=== PATIENT | female | born 1980 | race Caucasian/White ===

== ENCOUNTER 2019-04-17 20:48 | Emergency (ER) | payer BC, SELFPAY ==
[2019-04-17 20:48] VITALS: BP 163/89; PULSE 147; RESP 18; TEMP 36.8; O2SAT 96; BMI 46.1
--- NOTE | 2019-04-17 21:07 | CT_ITS ---
HISTORY: ,NAUSEA AND VOMITING ALL DAY,PREG TEST WAS NEGATIVE EXAMINATION: CT Abdomen And Pelvis W/ Contrast Injection TECHNIQUE: Helically acquired images were obtained of the abdomen and pelvis following IV contrast. A radiation dose optimization technique was used for this scan. IV Contrast dosage and agent: 100mL [id number]-300 IV Oral contrast: yes . Oral Gastrografin COMPARISON: None FINDINGS: Lower thorax: Clear. No pleural effusion or pericardial effusion. Normal gallbladder distention. No radiopaque gallstones and no biliary dilatation. Mildly enlarged fatty liver. Normal spleen and pancreas. Both kidneys are normal in position. Bilateral renal opacification without evidence of hydronephrosis, pyelonephritis, or suspicious renal lesion. Tiny cortical cyst, upper pole of the left kidney. The adrenal glands are not enlarged. Normal abdominal aorta and IVC. No ascites or retroperitoneal lymph node enlargement. GI tract: No obstruction. Contrast filling of a small appendix or appendiceal stump. No pericecal or pericolonic inflammatory changes. Pelvis: No free fluid or lymph node enlargement. Anteverted uterus which is normal in size. Normal urinary bladder. Bones: No acute osseous abnormality. CT/Abdomen/Pelvis WITH Contrast IMPRESSION: 1. Nonobstructive bowel gas pattern. No acute abdominal disease identified. 2. Mildly enlarged fatty liver. Otherwise negative exam. Individualized dose optimization techniques were used for this CT. at 2342 Reported and signed by: Hever Barrera MD Electronically Signed: Hever Barrera, at 23:40 EST Tel , Service support ,
[2019-04-17] MEDS: 0.9% Normal Saline 1,000 ML 1000 ML IV (21:16)
[2019-04-17] MEDS: Ondansetron 4 MG/2 ML Vial IV (21:16)
[2019-04-17 21:25] LABS: Absolute Lymphocyte Count 0.42 X10^3/uL (0.83-4.51); Absolute Neutrophil Count 10.1 X10^3/uL (2.0-7.7); Basophil# 0.01 X10^3/uL; Basophil% 0.1 % (0-1); Eosinophil# 0.03 X10^3/uL; Eosinophils% 0.3 % (0-5); Hematocrit 41.3 % (37-47); Hemoglobin 13.7 g/dL (12.0-15.0); Lymphocyte # 0.42 X10^3/ul (4.0); Lymphocyte % 3.8 % (19-41); Mean Corp Hgb Conc 33.2 g/dL (32-36); Mean Corpuscular Hgb 30.5 pg (27.0-32.0); Mean Platelet Vol. 8.9 fl (6.2-12.0); Monocyte# 0.33 X10^3/uL; NRBC Flagged by Analyzer 0 % (0-5); Neutrophil # 10.07 X10^3/uL (2.7-7.7); Neutrophil % 92.2 % (47-70); POSITIVE DIFFERENTIAL YES; Platelet Count 246 K/mm3 (150-450); RBC Distribution Width CV 11.9 % (11.6-14.6); RBC Distribution Width SD 39.8 fl (35.1-43.9); Red Blood Count 4.49 M/mm3 (4.2-5.4); White Blood Count 10.9 K/mm3 (4.4-11.0)
[2019-04-17 21:35] LABS: Differential Indicated SCAN CRITERIA MET
[2019-04-17 21:36] LABS: ALB/GLOB Ratio 0.9 RATIO (0.9-2.4); AST(SGOT) 28 U/L (15-37); Alanine Aminotransfer ALT/SGPT 30 U/L (13-56); Albumin, Serum 3.6 g/dL (3.2-5.0); Alkaline Phosphatase 115 U/L (45-117); Anion Gap 8 (5-15); BUN 18 mg/dL (7-18); BUN/Creat Ratio 22.8 RATIO (10-20); Calcium,Total 8.6 mg/dL (8.5-10.1); Chloride 106 mmol/L (98-107); Creatinine, Serum 0.79 mg/dL (0.55-1.02); EST Glomerular Filtration Rate 86 mL/min (>60); Est Glom Filt Rate - Afr Amer 104 mL/min (>60); Estimated Creatinine Clearance 88.62 ml/min; Globulin 4.1 g/dL (2.2-4.2); Glucose 145 mg/dL (74-106); Potassium 3.8 mmol/L (3.5-5.1); Protein, Total 7.7 g/dL (6.4-8.2); Sodium Level 136 mmol/L (136-145)
[2019-04-17 21:44] LABS: Internal QC Validated? YES +Cl - CLEAR BKGD; Pregnancy, Serum, hCG Quali. NEGATIVE Negative
[2019-04-17 21:53] LABS: Mucous, Urine 0 SEEN /hpf (<or=2+); Red Blood Cells-Urine 0 SEEN /hpf (0-5); White Blood Cells 0 SEEN /hpf (0-5)
[2019-04-17 22:04] LABS: Color, Urine Yellow (Yellow); Glucose, Dipstick Normal (Normal); Ketone-Dipstick 15 mg/dl (Negative); Leukocyte Esterase-Dipstick Negative /ul (Negative); Nitrite-Dipstick Negative (Negative); Occult Blood-Urine Negative /ul (Negative); Protein-Dipstick Negative (Negative); Specific Gravity, Urine 1.015 (1.002-1.030); Urine Bilirubin Dipstick Negative (Negative); Urine Clarity Sl. Cloudy (Clear); Urine Urobilinogen Normal (Normal)
[2019-04-17 22:07] LABS: Bacteria RARE /hpf (None Seen); Squamous Epithelial Cells - UA 0-5 SEEN /hpf (5-10)
--- NOTE | 2019-04-17 23:00 | ED.VISSUMM ---
- ER Visit Summary Date of Service: 04/17/19 Chief Complaint: [Nausea and vomiting] History of Present Illness: The patient is a 38 F [presents to the emergency department complaint of nausea and vomiting and abdominal pain. Patient states her symptoms started around 9:30 AM. Patient states that she is been throwing up like every hour. She denies any diarrhea. She denies blood in her stool. Patient had a low-grade fever up to 992 at home. Denies any sick contacts. Patient has no medical history. She has no's prior surgical history. Patient states that she had bronchitis a few weeks ago but that seems to have resolved.] Physical Examination: [HEENT-PERRLA, EOMI. Cranial nerves II through XII grossly intact. TMs clear. Mucous membranes moist. No adenopathy. Cardiovascular-regular rate and rhythm without murmur or ectopy Lungs-clear to auscultation, chest wall stable without crepitus or subcu emphysema Abdomen-normoactive bowel sounds, soft. Patient has tenderness to the right lower quadrant with some guarding. There is no rebound, rigidity, or peritoneal signs. Extremities-intact ?4, normal range of motion, normal pulses, atraumatic] Test Results: [CBC with differential obtained was normal. Chemistries unremarkable. Urinalysis normal. hCG was negative. CT scan of the abdomen pelvis ordered and pending] Emergency Department Course and Treatment: [She was treated with Zofran. Patient was given 1 L normal same fluid bolus.] Treatment Plan: [Patient will be turned over to evening physician awaiting CT results.] Disposition: [Pending] Impression: [Abdominal pain] This note was generated with [employer] dictation software. It may contain incorrect words, spelling, and punctuation that were not noted in review of the chart prior to signing <Jean Soliman - Last Filed: 04/17/19 23:00> - ER Visit Summary Patient checked out to me. Her CT returned unremarkable with a normal appendix and no signs of any inflammatory changes on any organs. She is feeling much better still. Tolerating oral fluids. She has had nonbloody repeated emesis without diarrhea. Her labs and urine are unremarkable. Hopefully viral gastritis, which would be consistent with all of this, supportive care advised along with symptom control, she is prescribed Zofran and we discussed reasons to return. She is comfortable with following up and asked for a work note for tomorrow. This note was generated with [employer] dictation software. It may contain incorrect words, spelling, and punctuation that were not noted in review of the chart prior to signing <Michael Kelly - Last Filed: 04/18/19 00:09> ED Disposition <Jean Soliman - Last Filed: 04/17/19 23:00> <Michael Kelly - Last Filed: 04/18/19 00:09> - Plan for ED Patient: Disposition: Home or Assisted Living Diagnosis: Acute gastritis without bleeding Instructions: DIET, Vomiting or Diarrhea [6yr-Adult], GASTRITIS (Adult) Prescriptions: Ondansetron [Zofran] 8 mg PO Q8H PRN PRN #12 tab PRN Reason: Nausea Transmission Status: Pending to [id number] Referrals: Ananda Vergara MD [Primary Care Provider] - 3-5 Days if not improving
[2019-04-17 23:18] VITALS: BP 153/84; PULSE 79; RESP 16; O2SAT 99
[2019-04-18 00:16] VITALS: BP 153/84; PULSE 79; RESP 16; O2SAT 99
== END 2019-04-18 00:17 | disposition home or self-care (01) ==
PROVIDERS: Emergency Provider Emergency Medicine; Family Provider Family Medicine; PCP Family Medicine
DX: K29.00 Acute gastritis without bleeding (principal)
CPT/HCPCS: 74177; 80053; 81001; 84703; 85025; 96361; 96374; 99283; J7030; Q9967; A4216; J2405

== ENCOUNTER 2019-06-23 12:54 | Emergency (ER) | payer BC, MEDICAID, SELFPAY ==
[2019-06-23 12:55] VITALS: BP 159/109; PULSE 111; RESP 20; TEMP 36.4; O2SAT 96; BMI 47.3
--- NOTE | 2019-06-23 13:11 | ED.VIS.GEN ---
History of Present Illness Chief Complaint: Cold Sx Detail of Chief Complaint: Cough, chest congestion and pleuritic chest pain Informant: Patient Onset: Yesterday Context: Sudden Onset Timing: Continuous Quality: Pain with coughing and deep breathing Location: Right and left chest Maximum Severity: Moderate Worsened by: Breathing Relieved by: Remaining still Associated Symptoms: Minimal nasal congestion with cough Narrative: Patient is a 38-year-old woman with no sniffing past medical history presents with cough, subjective fever, pleuritic pain and mild nasal congestion that started yesterday. She denies ill contacts. She states her T-max is 100.6 ?F. She complains of mild head pain. She denies photophobia, neck pain or neck stiffness. She denies throat pain. Denies change in voice. She denies history of PE or DVT. She denies leg pain, swelling discoloration. She denies GI or symptoms. Prior similar symptoms: Yes - Diagnosed with influenza last year Recent Illness/Hospitalization: No - Past Medical History (1) No significant past medical history Status: Acute Past Medical History - Allergies and Home Meds Allergies/Adverse Reactions: Allergies oseltamivir [From Tamiflu] Adverse Reaction (Verified 06/23/19 12:56) Vomiting Primary Care Physician: Ananda Vergara MD [Primary Care Provider] - Prior records reviewed: Yes Past Medical History: None Surgical History: noncontributory Lives: With Family Smoking Status: Never smoker Alcohol: None Drugs: None Review of Systems General: Reports: Fever, Malaise. Denies: Subjective, Sweats Eyes: Denies: Visual changes - bilaterally, Blurred Vision - bilaterally ENT: Denies: Bilateral ear pain, Rhinorrhea, Sore throat Cardiovascular: Reports: Chest pain. Denies: Palpitations Respiratory: Reports: Cough. Denies: Dyspnea, Sputum, Dyspnea on exertion, Orthopnea, Paroxysmal nocturnal dyspnea Gastrointestinal: Denies: Abdominal pain, Nausea, Vomiting, Diarrhea, Melena, Hematochezia Genitourinary: Denies: Dysuria, Hematuria, Frequency Musculoskeletal: Reports: Myalgias. Denies: Arthralgias, Neck pain, Back pain, Swelling, Extremity Pain Skin: Denies: Rash, Wounds Neurological: Denies: Headache, Weakness, Numbness Endocrine: Denies: Polyuria, Polydipsia Hematologic: Denies: Easy bruising, Easy bleeding Physical Exam Vital Signs/Narrative: Vital Signs Temp Pulse Resp BP Pulse Ox 06/23/19 12:55 97.5 F L 111 H 20 H 159/109 H 96 Inital Vital Signs reviewed: Yes General: Well nourished, Well developed, No Acute Distress Head: Normocephalic, Atraumatic Eyes: Perrl, EOMI. Negative for: Pale conjunctiva, Scleral icterus ENT: Moist mucous membranes, No rhinorrhea, TM's clear Neck: Supple, Nontender, No lymphadenopathy, No JVD Cardiovascular: Regular rhythm, No murmurs, Normal S1, Normal S2, Tachycardia Respiratory: No distress, CTA bilaterally, Decreased Air Movement Abdomen: Soft, Nontender, Nondistended, Normal bowel sounds Extremities: Nontender, No edema Skin: Normal color, No rash Neurological: Alert, Oriented x3, Cranial nerves II-XII grossly intact, Normal Strength, Normal Sensation, Normal Gait Psychological: Normal affect Diagnostic/Tx/Re-eval Chest X-Ray - ED: 2 View, Read by ED Physician, Normal, Heart, Lungs, Mediastinum, Bony Structures, No Acute Disease - Medical Decision Making With complaint of cough, tachypnea tachycardia with documented fever obtain chest x-ray to evaluate for pneumonia. Chest x-ray is normal. Patient has bronchitis. ED Disposition - Plan for ED Patient: Disposition: Home or Assisted Living Diagnosis: Upper respiratory infection with cough and congestion Instructions: BRONCHITIS, No Antibiotic (Adult) Referrals: Ananda Vergara MD [Primary Care Provider] - 10-14 Days if not better
--- NOTE | 2019-06-23 13:16 | RAD_ITS ---
STUDY: X-RAY CHEST REASON FOR EXAM: Female, 38 years old. COLD SYMPTOMS AND CHEST CONGESTION FOR A FEW DAYS TECHNIQUE: PA and lateral views of the chest. COMPARISON: 04/16/2012 FINDINGS: The lungs are clear and expanded. There is no demonstrated pleural abnormality. Normal size heart. Normal mediastinum and amy. Normal visualized pulmonary arteries. Normal visualized aortic arch and descending thoracic aorta. Normal visualized thoracic spine. Normal visualized ribs, clavicles, and shoulders. There is no demonstrated abnormality of the visualized soft tissue structures of the upper abdomen. RAD/Chest PA and Lateral IMPRESSION: Normal x-ray examination of the chest. Electronically Signed: Tomás De Leon MD at 13:51 EST Tel , Service support ,
== END 2019-06-23 14:14 | disposition home or self-care (01) ==
PROVIDERS: Emergency Provider Emergency Medicine; PCP Family Medicine
DX: J06.9 Acute upper respiratory infection, unspecified (principal)
CPT/HCPCS: 71046; 99282

== ENCOUNTER 2024-07-17 14:37 | Inpatient (IN) | payer BC, SELFPAY ==
[2024-07-17] VITALS (15 sets, daily range): BP systolic 169–190; BP diastolic 83–100; PULSE 92–120; RESP 16–18; TEMP 36.6–37.3; O2SAT 97–100; BMI 47.9; BMI 47.7
--- NOTE | 2024-07-17 14:43 | EKG12_ITS ---
Test Reason : Blood Pressure : */* mmHG Vent. Rate : 109 BPM Atrial Rate : 109 BPM P-R Int : 146 ms QRS Dur : 78 ms QT Int : 354 ms P-R-T Axes : 60 46 59 degrees QTcB Int : 476 ms Sinus tachycardia Otherwise normal ECG Confirmed by TAYLER WOOD, PARISH ([id number]), avid editor WAYNE JIMENEZ ([id number]) on 07/19/2024 8:16:11 AM Referred By: Peter Price Confirmed By: PARISH LESTER MD
--- NOTE | 2024-07-17 15:35 | EX.ED.DYSGE1 ---
HPI History of Present Illness Chief Complaint: Syncope Narrative Narrative: 43-year-old female presents with near syncope that happened prior to arrival. She relates history that she was taking Bactrim for an abscess, which was giving her side effects. She recently switched to Keflex which she has been taking, and has taken before. She states she woke up this morning and felt fine and went about her day. However, when she was at work, she had a near syncopal episode. While she was standing, she felt as if she was going to go down, but caught herself. She denies that she had any loss of consciousness or a true syncopal episode. No chest pain or shortness of breath. She has had intermittent headaches over the last few days, but states that it is secondary to her sinuses. She currently does not have a headache. She feels improved but came in for evaluation of her near syncopal episode. [facility] Medical History (Updated 07/17/24 @ 17:00 by Peter Price MD) Depression Home Medications ?Medication ?Instructions ?Recorded ?Last Taken ?Type ondansetron HCl 8 mg tablet 8 mg PO Q8H PRN PRN Nausea #12 tabs 04/18/19 Unknown Rx Allergy/AdvReac Type Severity Reaction Status Date / Time oseltamivir (From Tamiflu) AdvReac Vomiting Verified 07/17/24 14:38 Social History (Updated 07/17/24 @ 15:53 by Vivian Kaiser) household members: spouse housing: house Smoking Status: Never smoker ROS ROS ED ROS Narrative Constitutional: No fever, no chills. HEENT: No neck pain. No loss of vision. No rhinorrhea. Positive for sinus problems. Cardiovascular: No chest pain. No palpitations. No pedal edema. Respiratory: No cough, no shortness of breath. Abdominal: No abdominal pain. No nausea. No vomiting. Genitourinary: No dysuria. No hematuria. Musculoskeletal: No myalgias. No arthralgias. Neurologic: Occasional headaches, not currently. Intermittent dizziness. Positive lightheadedness and near syncope. Skin: No rash. No change in color. Being treated for an abscess with antibiotics. Psychiatric: No depression. No anxiety. EXAM Physical Exam Narrative Exam Narrative: Afebrile. Vital signs noted. Nontoxic-appearing. Cardiovascular examination reveals intermittent tachycardia. Lungs clear to auscultation bilaterally. Abdomen is soft and nontender with positive bowel sounds. No guarding or rebound. Neurological examination is nonfocal, nonlateralizing. Awake, alert, oriented, pleasant. Const Vital Signs: 07/17/24 14:39 07/17/24 15:52 07/17/24 15:52 Temperature 97.8 F Temperature Source Oral Pulse Rate 105 H Pulse Rate [Lying] Pulse Rate [Sitting (for 1 minute prior to obtaining)] Pulse Rate [Standing (for 1 minute prior to obtaining)] Respiratory Rate 18 Respiratory Effort Normal Non-Labored Respiratory Pattern Normal Blood Pressure 170/91 H Blood Pressure [Lying] Blood Pressure [Sitting (for 1 minute prior to obtaining)] Blood Pressure [Standing (for 1 minute prior to obtaining)] Blood Pressure Mean 117 Blood Pressure Mean [Lying] Blood Pressure Mean [Sitting (for 1 minute prior to obtaining)] Blood Pressure Mean [Standing (for 1 minute prior to obtaining)] Pulse Ox 100 97 Oxygen Delivery Method Room Air Room Air 07/17/24 16:00 07/17/24 16:38 07/17/24 17:05 Temperature 98 F Temperature Source Pulse Rate 100 100 Pulse Rate [Lying] 113 H Pulse Rate [Sitting (for 1 minute prior to obtaining)] 114 H Pulse Rate [Standing (for 1 minute prior to obtaining)] 120 H Respiratory Rate 18 Respiratory Effort Respiratory Pattern Blood Pressure 179/89 H 179/89 H Blood Pressure [Lying] 176/91 H Blood Pressure [Sitting (for 1 minute prior to obtaining)] 186/98 H Blood Pressure [Standing (for 1 minute prior to obtaining)] 176/94 H Blood Pressure Mean 119 119 Blood Pressure Mean [Lying] 119 Blood Pressure Mean [Sitting (for 1 minute prior to obtaining)] 127 Blood Pressure Mean [Standing (for 1 minute prior to obtaining)] 121 Pulse Ox 100 100 Oxygen Delivery Method MDM MDM MDM Narrative Medical decision making narrative: Differential diagnosis includes but not limited to orthostatic hypotension/near syncope versus vasovagal near syncope versus dehydration versus other electrolyte imbalance versus hypertensive urgency. Initially her blood pressure was 170/91 but while he was in the room it was just over 200 systolic. I do not feel she requires a CT of the brain currently as she has a normal neurological examination and she is symptom-free. Protocol labs were obtained including CBC and CMP. EKG was obtained and interpreted by myself independently as sinus tachycardia at 109 bpm without ectopy or acute ST changes. No STEMI. Her pulse ox is 100% on room air. I have low suspicion for pulmonary embolus. She will be observed on the engine monitor to see if her blood pressure will start to normalize without medication intervention. I was able to review her CBC initially and she has an elevated white count of 16.8 but of most significant is her hemoglobin of 5.4. Hematocrit 17.9 with platelet count normal at 434. Gurvinder interview with the patient, she states that she has not been anemic previously, but felt weak and tired prior to her starting Bactrim last week, and while she was on Bactrim she had black stool. However, yesterday she had a bowel movement that was more brown in color. I reviewed the BMP which shows normal BUN of 15 and creatinine low at 0.61. Normal BUN will go against significant upper GI bleeding, but is still a possibility. I will obtain a fecal occult blood of her stool. At this point in time, orthostatics will be performed. She has never had a blood transfusion previously. Risks and benefits discussed. As she states she was having black stool I do suspect previous GI bleed, she will be typed and crossmatched, I do feel that she merits at least observation with is dependent on her fecal occult blood of stool as well. Orthostatics were obtained and reviewed and are negative. Chaperoned rectal examination did reveal dark chirinos stool. There was no acute hemorrhage. I reviewed the fecal occult blood test which is positive. At this point in time, I feel she requires admission for her GI bleeding, elevated blood pressure, and anemia requiring transfusions. I discussed the patient with Dr. Misti Johnston who will admit to the PCU. Patient is in stable condition. History & Record Review Discussion w/independent historian: Patient Lab Data Attestation: I reviewed the patient's lab results. Labs: Laboratory Results - last 24 hr 07/17/24 07/17/24 15:29 15:59 WBC 16.8 H RBC 2.07 L Hgb 5.4 L* Hct 17.9 L MCV 86.5 MCH 26.1 L MCHC 30.2 L RDW Std Deviation 46.7 H RDW Coeff of Carlitos 14.9 H Plt Count 434 MPV 8.6 Immature Gran % (Auto) 4.600 H Neut % (Auto) 71.5 H Lymph % (Auto) 16.6 L Dodge % (Auto) 4.6 Eos % (Auto) 2.5 Baso % (Auto) 0.2 Absolute Neuts (auto) 12.0 H Absolute Lymphs (auto) 2.78 Nucleated RBC % 0.7 Diff Path Review May foll Platelet Estimate A Polychromasia 1+ Tear Drop Cells 1+ Ovalocytes 1+ Sodium 138 Potassium 3.6 Chloride 105 Carbon Dioxide 20.2 L Anion Gap 13 BUN 15 Creatinine 0.61 L Estim Creat Clear Calc 153.51 Est GFR (MDRD) Non-Af 112 BUN/Creatinine Ratio 24.0 H Glucose 153 H Calcium 8.6 Total Bilirubin 0.15 AST 23 ALT 20 Alkaline Phosphatase 96 Total Protein 7.4 Albumin 3.9 Globulin 3.5 Albumin/Globulin Ratio 1.1 Blood Type O POSITIVE Antibody Screen NEGATIVE Crossmatch See Detail Management Discussion w/another healthcare provider: Hospitalist (Dr. Misti Johnston) Discharge Plan Dx/Rx/DC Orders Clinical Impression: Anemia requiring transfusions, Elevated blood pressure reading without diagnosis of hypertension, GI bleed Disposition Disposition: Acute Care Hospital [facility]
[2024-07-17 15:43] LABS: Absolute Lymphocyte Count 2.78 X10^3/uL (0.83-4.51); Basophil# 0.03 X10^3/uL; Basophil% 0.2 % (0-1); Eosinophil# 0.42 X10^3/uL; Eosinophils% 2.5 % (0-5); Hematocrit 17.9 % (37-47); Hemoglobin 5.4 g/dL (12.0-15.0); Lymphocyte # 2.78 X10^3/ul (0.83-4.51); Lymphocyte % 16.6 % (19-41); Mean Corp Hgb Conc 30.2 g/dL (32-36); Mean Corpuscular Hgb 26.1 pg (27.0-32.0); Mean Corpuscular Volume 86.5 fL (81-99); Mean Platelet Vol. 8.6 fl (6.2-12.0); Monocyte# 0.77 X10^3/uL; Monocyte% 4.6 % (0-10); NRBC Flagged by Analyzer 0.7 % (0-5); Neutrophil # 12.01 X10^3/uL (2.7-7.7); Neutrophil % 71.5 % (47-70); POSITIVE COUNT YES; Platelet Count 434 K/mm3 (150-450); RBC Distribution Width CV 14.9 % (11.6-14.6); RBC Distribution Width SD 46.7 fl (35.1-43.9); Red Blood Count 2.07 M/mm3 (4.2-5.4); White Blood Count 16.8 K/mm3 (4.4-11.0)
[2024-07-17 15:45] LABS: Differential Indicated SCAN CRITERIA MET
[2024-07-17 16:08] LABS: ALB/GLOB Ratio 1.1 RATIO (0.9-2.4); AST(SGOT) 23 U/L (<=31); Alanine Aminotransfer ALT/SGPT 20 U/L (<=34); Albumin, Serum 3.9 g/dL (3.5-5.0); Alkaline Phosphatase 96 U/L (35-104); Anion Gap 13 (5-15); BUN 15 mg/dL (4-19); Calcium,Total 8.6 mg/dL (7.6-11.0); Carbon Dioxide 20.2 mmol/L (21.0-32.0); Chloride 105 mmol/L (98-108); Creatinine, Serum 0.61 mg/dL (0.70-1.20); EST Glomerular Filtration Rate 112 (>60); Estimated Creatinine Clearance 153.51 ml/min (50-250); Globulin 3.5 g/dL (2.2-4.2); Glucose 153 mg/dL (70-99); Potassium 3.6 mmol/L (3.3-5.1); Protein, Total 7.4 g/dL (5.9-8.4); Sodium Level 138 mmol/L (133-145); Total Bilirubin 0.15 mg/dL (0.00-1.30)
[2024-07-17 16:46] LABS: Ovalocyte 1+; Platelet Estimate A (ADEQ); Polychromasia 1+; Tear Drop Cell 1+
[2024-07-17 16:47] LABS: Pathologist Review May foll
--- NOTE | 2024-07-17 18:31 | PCM.HP.STD ---
HPI - General General Date of Admission: 07/17/24 Date of Service: 07/17/24 Chief Complaint: Presyncopal episode HPI Narrative ENRIQUE HARTMAN, is a 43-year-old female with recent antibiotics on Bactrim switched to Keflex presented to [facility] ED 07/13/2024 due to near syncope. This morning she felt fine and went about her day but work she had a near syncopal episode but caught herself. Denies any loss of consciousness. In the ED patient initially hypertensive with 170/91 blood pressure but she was found to have white count of 16.8 and hemoglobin of 5.4 without any noted history of anemia but did begin to have dark stool. Fecal occult positive so hospitalist contacted for admission. Patient evaluated at bedside, she reports that she had a abscess that began to spontaneously drain under her left breast and was initially placed on Bactrim, she developed a dark stool, was very tired and felt unwell and was switched to Keflex on and symptoms improved and she feels that her abscess has also continues significantly improved however today at work she had been feeling well until the middle of her work shift when she was standing there and became very lightheaded and presyncopal, she grabbed onto something and did not completely lose consciousness, symptoms have since resolved but she came to the hospital for evaluation. Reports that her stool had been dark but has been clearing up since she was switched to the Keflex, denies any significant reflux and reports she will occasionally have some heartburn that goes away with [id number] medications, denies any recent changes in this. No abdominal pain or nausea [facility] Medical History (Updated 07/17/24 @ 17:00 by Peter Price MD) Depression Home Medications ?Medication ?Instructions ?Recorded ?Last Taken ?Type albuterol sulfate 90 mcg/actuation 2 puff inhalation Q4H PRN PRN 07/17/24 07/17/24 History aerosol inhaler wheezing cephalexin 500 mg capsule 500 mg PO 4X/DAY 07/17/24 07/17/24 History fluoxetine 20 mg capsule 20 mg PO DAILY 07/17/24 07/16/24 History fluticasone propionate 50 1 spray intranasal Q12H 07/17/24 07/17/24 History mcg/actuation nasal spray,suspension Allergy/AdvReac Type Severity Reaction Status Date / Time oseltamivir (From Tamiflu) AdvReac Vomiting Verified 07/17/24 14:38 Social History (Updated 07/17/24 @ 15:53 by Vivian Kaiser) household members: spouse housing: house Smoking Status: Never smoker ROS ROS Narrative General: Denies fever/chills HENT: Occasionally gets some nasal congestion and headache EYES: Denies changes in vision Resp: Denies cough, denies shortness of breath Cardiac: Denies chest pain GI: Denies abdominal pain, has had some dark bowel movements, reports these have been clearing up, denies nausea/vomiting : Denies changes in urination Extremity: Denies swelling MSK: Denies weakness Neuro: Denies any numbness/tingling Heme: Denies any bleeding or bruising Skin: Has draining area under left breast Psychiatric: No complaints voiced Vital Signs Vital Signs Vital Signs: 07/17/24 14:39 07/17/24 15:52 07/17/24 15:52 Temperature 97.8 F Temperature Source Oral Pulse Rate 105 H Pulse Rate [Lying] Pulse Rate [Sitting (for 1 minute prior to obtaining)] Pulse Rate [Standing (for 1 minute prior to obtaining)] Respiratory Rate 18 Respiratory Effort Normal Non-Labored Respiratory Pattern Normal Blood Pressure 170/91 H Blood Pressure [Lying] Blood Pressure [Sitting (for 1 minute prior to obtaining)] Blood Pressure [Standing (for 1 minute prior to obtaining)] Blood Pressure Mean 117 Blood Pressure Mean [Lying] Blood Pressure Mean [Sitting (for 1 minute prior to obtaining)] Blood Pressure Mean [Standing (for 1 minute prior to obtaining)] Blood Pressure Source Blood Pressure Position Blood Pressure Location Pulse Ox 100 97 Oxygen Delivery Method Room Air Room Air 07/17/24 16:00 07/17/24 16:38 07/17/24 17:05 Temperature 98 F Temperature Source Pulse Rate 100 100 Pulse Rate [Lying] 113 H Pulse Rate [Sitting (for 1 minute prior to obtaining)] 114 H Pulse Rate [Standing (for 1 minute prior to obtaining)] 120 H Respiratory Rate 18 Respiratory Effort Respiratory Pattern Blood Pressure 179/89 H 179/89 H Blood Pressure [Lying] 176/91 H Blood Pressure [Sitting (for 1 minute prior to obtaining)] 186/98 H Blood Pressure [Standing (for 1 minute prior to obtaining)] 176/94 H Blood Pressure Mean 119 119 Blood Pressure Mean [Lying] 119 Blood Pressure Mean [Sitting (for 1 minute prior to obtaining)] 127 Blood Pressure Mean [Standing (for 1 minute prior to obtaining)] 121 Blood Pressure Source Blood Pressure Position Blood Pressure Location Pulse Ox 100 100 Oxygen Delivery Method 07/17/24 17:45 07/17/24 18:00 Temperature 98.2 F 98.3 F Temperature Source Oral Oral Pulse Rate 111 H 96 Pulse Rate [Lying] Pulse Rate [Sitting (for 1 minute prior to obtaining)] Pulse Rate [Standing (for 1 minute prior to obtaining)] Respiratory Rate 16 16 Respiratory Effort Respiratory Pattern Blood Pressure 172/99 H 185/83 H Blood Pressure [Lying] Blood Pressure [Sitting (for 1 minute prior to obtaining)] Blood Pressure [Standing (for 1 minute prior to obtaining)] Blood Pressure Mean 123 117 Blood Pressure Mean [Lying] Blood Pressure Mean [Sitting (for 1 minute prior to obtaining)] Blood Pressure Mean [Standing (for 1 minute prior to obtaining)] Blood Pressure Source Monitor Monitor Blood Pressure Position Semi-Fowlers Semi-Fowlers Blood Pressure Location Left Arm Left Arm Pulse Ox 100 100 Oxygen Delivery Method Room Air Room Air Weight Weight: 126.688 kg Body Mass Index (BMI) 47.9 Physical Exam Narrative General: Alert, oriented, no apparent distress HEENT: Atraumatic, normocephalic Eyes: Anicteric, normal conjunctiva, extraocular movements grossly intact Neck: Supple Respiratory: Clear to auscultation bilaterally, normal respiratory effort Cardiovascular: Regular rate and rhythm GI: Soft, nontender, nondistended Extremities: No edema Musculoskeletal: Moving all extremities Neuro: No overt focal neurological deficits Skin: Patient has draining abscess under left breast with purulent material Psych: Cooperative Results Lab / Micro Data 07/17/24 15:29 07/17/24 15:29 Labs: Laboratory Results - last 24 hr 07/17/24 15:29: WBC 16.8 H, RBC 2.07 L, Hgb 5.4 L*, Hct 17.9 L, MCV 86.5, MCH 26.1 L, MCHC 30.2 L, RDW Std Deviation 46.7 H, RDW Coeff of Carlitos 14.9 H, Plt Count 434, MPV 8.6, Immature Gran % (Auto) 4.600 H, Neut % (Auto) 71.5 H, Lymph % (Auto) 16.6 L, [place] % (Auto) 4.6, Eos % (Auto) 2.5, Baso % (Auto) 0.2, Absolute Neuts (auto) 12.0 H, Absolute Lymphs (auto) 2.78, Nucleated RBC % 0.7, Diff Path Review May foll, Platelet Estimate A, Polychromasia 1+, Tear Drop Cells 1+, Ovalocytes 1+, Sodium 138, Potassium 3.6, Chloride 105, Carbon Dioxide 20.2 L, Anion Gap 13, BUN 15, Creatinine 0.61 L, Estim Creat Clear Calc 153.51, Est GFR (MDRD) Non-Af 112, BUN/Creatinine Ratio 24.0 H, Glucose 153 H, Calcium 8.6, Total Bilirubin 0.15, AST 23, ALT 20, Alkaline Phosphatase 96, Total Protein 7.4, Albumin 3.9, Globulin 3.5, Albumin/Globulin Ratio 1.1 07/17/24 15:59: Blood Type O POSITIVE, Antibody Screen NEGATIVE, Crossmatch See Detail Micro: Microbiology 07/17/24 16:25 Stool Stool Occult Blood (SAQIB) - Final Occult Blood Positive Assessment & Plan Assessment/Plan (1) GI bleed: PLAN: Plan # Anemia with concern for GI bleed -Hemoglobin 5.4 with near syncopal episode however symptoms completely resolved and patient with negative orthostats -Patient did have dark stool but she reports that it has been improving, FOBT was positive but rectal exam with no joana blood -Patient typed and crossed with plans to transfuse 2 units packed blood cells -IV PPI -Trend H&H -GI consult -Patient presently stable # Abscess under her left breast -White blood cell count 16.8, was on Bactrim and switched to Keflex -Does have purulent drainage on exam -Will obtain culture Place patient on vancomycin for coverage # Significant hypertension -Unclear chronicity -Continue to monitor and if patient remains elevated will likely need started on medication prior to discharge but given concern for GI bleed hesitant to do so acutely unless absolutely necessary -Will add hydralazine as needed #Depression/anxiety -Continue home medications #Morbid obesity -BMI documented as 47.7 kg/m? at time of admission -Complicates treatment, prognosis, outcomes -Recommend weight loss and lifestyle changes #DVT ppx: SCDs Misti Johnston MD Charges/Coding Visit Charges Inpatient E&M: 01580 Init Hosp L2
[2024-07-17] MEDS: 0.9% Normal Saline (100mL Bag) 100 ML 15 ML IV (21:43)
[2024-07-17] MEDS: Vancomycin HCl 2,000 MG in 0.9% Normal Saline (500mL Bag) 500 ML 250 MG IV (21:43)
[2024-07-17] MEDS: 0.9% Saline Lock 10 ML Syringe IV (21:44)
[2024-07-17] MEDS: Pantoprazole Sodium 40 MG in 0.9% Normal Saline (100mL MB+) 100 ML 330 MG IV (21:46)
[2024-07-17] MEDS: Fluticasone 0.05% 1 SPRAY NASAL.SRY NASAL (23:12)
[2024-07-18] VITALS (14 sets, daily range): BP systolic 118–195; BP diastolic 66–96; PULSE 91–108; RESP 16–18; TEMP 2.7–37.3; O2SAT 95–99; BMI 47.7
[2024-07-18 01:18] LABS: Hematocrit 20.3 % (37-47); Hemoglobin 6.5 g/dL (12.0-15.0); Mean Corpuscular Hgb 27.2 pg (27.0-32.0); Mean Corpuscular Volume 84.9 fL (81-99); Mean Platelet Vol. 8.3 fl (6.2-12.0); Platelet Count 336 K/mm3 (150-450); RBC Distribution Width CV 14.3 % (11.6-14.6); RBC Distribution Width SD 44.1 fl (35.1-43.9); Red Blood Count 2.39 M/mm3 (4.2-5.4); White Blood Count 17.3 K/mm3 (4.4-11.0)
[2024-07-18 01:25] LABS: Scan Indicated on CBC? Y/N NO
[2024-07-18] MEDS: hydrALAZINE 20 MG/ML Vial 5 MG IV (03:02)
[2024-07-18] MEDS: 0.9% Saline Lock 10 ML Syringe IV ×2 (06:02→21:23)
[2024-07-18 07:32] LABS: Absolute Lymphocyte Count 2.48 X10^3/uL (0.83-4.51); Basophil# 0.04 X10^3/uL; Basophil% 0.3 % (0-1); Eosinophil# 0.43 X10^3/uL; Hematocrit 22.7 % (37-47); Hemoglobin 7.2 g/dL (12.0-15.0); Lymphocyte # 2.48 X10^3/ul (0.83-4.51); Lymphocyte % 17.3 % (19-41); Mean Corp Hgb Conc 31.7 g/dL (32-36); Mean Corpuscular Hgb 26.9 pg (27.0-32.0); Mean Corpuscular Volume 84.7 fL (81-99); Mean Platelet Vol. 8.5 fl (6.2-12.0); Monocyte# 0.82 X10^3/uL; Monocyte% 5.7 % (0-10); Neutrophil # 9.96 X10^3/uL (2.7-7.7); Neutrophil % 69.5 % (47-70); Platelet Count 337 K/mm3 (150-450); RBC Distribution Width CV 14.6 % (11.6-14.6); RBC Distribution Width SD 44.9 fl (35.1-43.9); Red Blood Count 2.68 M/mm3 (4.2-5.4); White Blood Count 14.3 K/mm3 (4.4-11.0)
[2024-07-18 08:05] LABS: International Normalized Ratio 1.2; Partial Thromboplast Time 22.6 Seconds (24.1-36.2); Prothrombin Time (Protime)PT. 15.1 SECONDS (11.7-14.9)
[2024-07-18 08:20] LABS: Anion Gap 9 (5-15); BUN 12 mg/dL (4-19); Calcium,Total 8.1 mg/dL (7.6-11.0); Carbon Dioxide 21.4 mmol/L (21.0-32.0); Chloride 108 mmol/L (98-108); Creatinine, Serum 0.55 mg/dL (0.70-1.20); EST Glomerular Filtration Rate 115 (>60); Glucose 124 mg/dL (70-99); Potassium 3.8 mmol/L (3.3-5.1); Sodium Level 139 mmol/L (133-145)
[2024-07-18] MEDS: Vancomycin HCl 1,750 MG in 0.9% Normal Saline (500mL Bag) 500 ML 250 MG IV ×2 (10:22→22:00)
[2024-07-18] MEDS: Fluticasone 0.05% 1 SPRAY NASAL.SRY NASAL ×2 (10:22→21:21)
[2024-07-18] MEDS: Pantoprazole Sodium 40 MG in 0.9% Normal Saline (100mL MB+) 100 ML 330 MG IV ×2 (10:22→21:22)
[2024-07-18 11:20] LABS: Hematocrit 22.8 % (37-47); Hemoglobin 7.3 g/dL (12.0-15.0); Mean Corpuscular Hgb 27.1 pg (27.0-32.0); Mean Corpuscular Volume 84.8 fL (81-99); Mean Platelet Vol. 8.4 fl (6.2-12.0); Platelet Count 343 K/mm3 (150-450); RBC Distribution Width CV 14.7 % (11.6-14.6); Red Blood Count 2.69 M/mm3 (4.2-5.4); White Blood Count 13.7 K/mm3 (4.4-11.0)
--- NOTE | 2024-07-18 11:30 | CASEMGMT ---
RN MAXIM Face to Face with patient for initial transition planning/care coordination assessment. RN CM introduced self and role at [facility]. Patient lying in bed, alert and oriented. Patient willing to participate in assessment and is able to answer all questions appropriately. Care providers, pharmacy, and demographics verified. Strata: 1 PCP: Jai Specialists: none Preferred Pharmacy: [facility] Insurance: [place] Prescription Benefit: yes Living Will/HPOA: none LNOK: mother Living Arrangements: Patient lives alone in a second floor apartment. Patient is independent and able to ambulate stairs. Transportation: self, friends DME/HHC: Patient has grab bar at home. No previous HHC or SNF Patient wishes to discharge home, denies need for home health at this time. Patient states he has no further needs or concerns at this time. CM to follow for discharge planning needs that may arise. Disposition Plan: Patient to discharge home with family support and follow-up plans in place. Soledad CUENCA, RN, CM
--- NOTE | 2024-07-18 12:51 | PN.HOSP_ITS ---
Subjective Subjective Doing well, feels much better after transfusions. Hemoglobin 7.3 on recheck Objective Data Objective Data Vital Signs: Vital Signs Temp Pulse Resp BP Pulse Ox O2 Del Method 98.1 F 99 16 168/86 H 99 Room Air 07/18/24 10:01 07/18/24 10:01 07/18/24 10:01 07/18/24 10:01 07/18/24 10:01 07/18/24 10:01 Oxygen Delivery Method Room Air Weight: 277 lb 12.519 oz Body Mass Index (BMI) 47.7 Intake & Output: Intake and Output for Last 24 Hours 07/17/24 07/18/24 07/19/24 03:59 03:59 03:59 Intake Total 1164.25 / 1164.25 110 / 110 Balance 1164.25 / 1164.25 110 / 110 Lab / Micro Data 07/18/24 11:07 07/18/24 07:19 Labs: Laboratory Results - last 24 hr 07/17/24 15:29: WBC 16.8 H, RBC 2.07 L, Hgb 5.4 L*, Hct 17.9 L, MCV 86.5, MCH 26.1 L, MCHC 30.2 L, RDW Std Deviation 46.7 H, RDW Coeff of Carlitos 14.9 H, Plt Count 434, MPV 8.6, Immature Gran % (Auto) 4.600 H, Neut % (Auto) 71.5 H, Lymph % (Auto) 16.6 L, [place] % (Auto) 4.6, Eos % (Auto) 2.5, Baso % (Auto) 0.2, A bsolute Neuts (auto) 12.0 H, Absolute Lymphs (auto) 2.78, Nucleated RBC % 0.7, Diff Path Review August, Platelet Estimate A, Polychromasia 1+, Tear Drop Cells 1+, Ovalocytes 1+, Sodium 138, Potassium 3.6, Chloride 105, Carbon Dioxide 20.2 L, Anion Gap 13, BUN 15, Creatinine 0.61 L, Estim Creat Clear Calc 153.51, Est GFR (MDRD) Non-Af 112, BUN/Creatinine Ratio 24.0 H, Glucose 153 H, Calcium 8.6, Total Bilirubin 0.15, AST 23, ALT 20, Alkaline Phosphatase 96, Total Protein 7.4, Albumin 3.9, Globulin 3.5, Albumin/Globulin Ratio 1.1 07/17/24 15:59: Blood Type O POSITIVE, Antibody Screen NEGATIVE, Crossmatch See Detail 07/17/24 15:59: Crossmatch See Detail 07/18/24 01:06: WBC 17.3 H, RBC 2.39 L, Hgb 6.5 L, Hct 20.3 L, MCV 84.9, MCH 27.2, MCHC 32.0 D, RDW Std Deviation 44.1 H, RDW Coeff of Carlitos 14.3, Plt Count 336, MPV 8.3 07/18/24 07:19: WBC 14.3 H, RBC 2.68 L, Hgb 7.2 L, Hct 22.7 L, MCV 84.7, MCH 26.9 L, MCHC 31.7 L, RDW Std Deviation 44.9 H, RDW Coeff of Carl[place] 14.6, Plt Count 337, MPV 8.5, Immature Gran % (Auto) 4.200 H, Neut % (Auto) 69.5, Lymph % (Auto) 17.3 L, [place] % (Auto) 5.7, Eos % (Auto) 3.0, Baso % (Auto) 0.3, Absolute Neuts (auto) 10.0 H, Absolute Lymphs (auto) 2.48, Nucleated RBC % 1.0, PT 15.1 H, INR 1.2, APTT 22.6 L, Sodium 139, Potassium 3.8, Chloride 108, Carbon Dioxide 21.4, Anion Gap 9, BUN 12, Creatinine 0.55 L, Estim Creat Clear Calc 169.70, Est GFR (MDRD) Non-Af 115, BUN/Creatinine Ratio 22.0 H, Glucose 124 H, Calcium 8.1 07/18/24 11:07: WBC 13.7 H, RBC 2.69 L, Hgb 7.3 L, Hct 22.8 L, MCV 84.8, MCH 27.1, MCHC 32.0, RDW Std Deviation 45.0 H, RDW Coeff of [place] 14.7 H, Plt Count 343, MPV 8.4 Micro: Microbiology 07/17/24 16:25 Stool Stool Occult Blood (SAQIB) - Final Occult Blood Positive Physical Exam Narrative General: Alert, Oriented x3, Cooperative, No apparent distress HEENT: Atraumatic, PERRLA, EOMI, Normocephalic Oral: Moist Mucosa Neck: Supple, No JVD Lungs: Diminished, Normal air movement, No rhonchi, No wheeze, No rales Cardiovascular: Regular rate, Regular Rhythm, Normal S1, Normal S2, No murmurs Abdomen: Soft, Non Tender, Non-Distended, No Hepato-splenomegaly Extremities: No edema, Capillary Refill Less than 3 Seconds Skin: No rashes, No breakdown, left breast abscess dressing intact Musculoskeletal: No Tenderness to Palpation of Joints or Extremities Neurological: No focal neurological deficits, Motor Exam 5/5 strength throughout, Sensory exam intact to light touch and pain Psych/Mental Status: Normal Affect, Appropriate Assessment & Plan Assessment/Plan (1) GI bleed: PLAN: Plan 1. Acute blood loss anemia secondary to GI bleed/morbid obesity ? Hemoccult was positive, there was some concern for possible hemolysis secondary to the Bactrim however bilirubin was normal ? EGD is pending ? Continue with n.p.o. status ? Will recheck hemoglobin in the morning ? BMI 47.7 2. Left breast abscess ? Currently drained and can likely improve without further antibiotics on discharge ? Culture is pending 3. Hypertension ? No previous diagnosis and does not take any medications for it unclear if this is stress related or genuine ? If she remains elevated prior to discharge can consider the addition of Norvasc with outpatient follow-up 4. Anxiety/depression ? Stable ? Continue with her home medications DVT: SCDs Charges/Coding Visit Charges Inpatient E&M: 17802 Subs Hosp L2
--- NOTE | 2024-07-18 13:40 | CASEMGMT ---
Patient declined any abuse. Patient also said she periodically will go to [facility] for food. That is one of the only food [place] that does not have an income guideline. Otherwise she does not qualify for any other assistance. Marisol CARVER
--- NOTE | 2024-07-18 14:22 | PCM.PRE.AN2 ---
ASA Classification* ASA Classification ASA Classification: 3 Assessment & Plan Anesthesia* Anesthesia Assessment Anesthesia Assessment: Discussed sedation and/or anesthesia options, risks, benefits, and alternatives with patient/parents/legal guardian/POA. Questions invited. The patient/parents/legal guardian/POA seems to understand and agrees to proceed with anesthesia plan. Reviewed the physical assessment, medical history, allergy history and patient home medications list prior to surgery/procedure/anesthetic and documented any changes. Performed airway and anesthesia risk assessments. Anesthesia Type Anesthesia Type: MAC History Source History Obtained from:: Patient and Chart Anesthesia Focused Assessment* Temperature: 98.1 F Pulse Rate: 99 Blood Pressure: 168/86 Respiratory Rate: 16 Pulse Ox: 99 Oxygen Delivery Method: Room Air Airway Assessment Mouth opens: >3 cm Mallampati Score: II Teeth Condition: Intact Neck Range of motion (ROM): Full ROM Focused Labs Anesthesia Preop lab: CBC WBC 13.7 K/mm3 (4.4-11.0) H 07/18/24 11:07 07/18/24 RBC 2.69 M/mm3 (4.2-5.4) L 07/18/24 11:07 07/18/24 Hgb 7.3 g/dL (12.0-15.0) L 07/18/24 11:07 07/18/24 Hct 22.8 % (37-47) L 07/18/24 11:07 07/18/24 Plt Count 343 K/mm3 (150-450) 07/18/24 11:07 07/18/24 CHEMISTRY Potassium 3.8 mmol/L (3.3-5.1) 07/18/24 07:19 07/18/24 Sodium 139 mmol/L (133-145) 07/18/24 07:19 07/18/24 BUN 12 mg/dL (4-19) 07/18/24 07:19 07/18/24 Creatinine 0.55 mg/dL (0.70-1.20) L 07/18/24 07:19 07/18/24 Glucose 124 mg/dL (70-99) H 07/18/24 07:19 07/18/24 COAG PT 15.1 SECONDS (11.7-14.9) H 07/18/24 07:19 07/18/24 Pre-Assessment Diagnosis/Proposed Procedure Planned Operative Procedure(s): Esophagogastroduodenoscopy with possible biopsies. 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 When Was Last Pacemaker Check QUESTION #4 FULL TEXT: You/Your Family Experience fever (hyperthermia) with Anesthesia Last Oral Intake Last Oral intake: Last Oral Intake NPO since 00:01 07/18/24 10:25 Meds taken in AM with sips of No 07/18/24 10:25 water? Meds patient instructed to take am of surgery PONV PONV - real estate intern: PONV - real estate intern Female HX of Motion Sickness HX of N/V After Surgery Non-Smoker Duration of Surgery greater than 60 minutes Number of Risk Factors PONV Score Height & Weight Height & Weight: Anesthesia: Height & Weight Height 5 ft 4 in 07/18/24 10:25 Weight: 126 kg 07/18/24 10:25 Body Mass Index (BMI) 47.7 07/18/24 10:25 Respiratory Assessment Respiratory Assessment - real estate intern: Respiratory Tract Infection Hx - real estate intern Hx Respiratory Tract Infection No 07/18/24 10:28 STOP Sleep Apnea STOP Sleep Apnea - real estate intern: STOP Sleep Apnea - real estate intern Hx Hypertension No 07/17/24 18:55 Hx Sleep Apnea No 07/17/24 18:55 CPAP BIPAP Do you snore loudly (louder No 07/17/24 18:55 than talking or can be heard Do you often feel tired/ No 07/17/24 18:55 fatigued/ sleepy during daytime? Has anyone observed you stop No 07/17/24 18:55 breathing during sleep? STOP Results Negative 07/17/24 18:55 QUESTION #5 FULL TEXT : Do you snore loudly (louder than talking or can be heard through closed doors)? 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 Specify any problems Hx of Preganancy in last 3 No 07/17/24 18:55 Months Nurse Filling Out Transfusion JNORRIS 07/17/24 18:55 & Questions: Date: 07/17/24 07/17/24 18:55 Time: 19:03 07/17/24 18:55 Patient unable to answer at this time (ie. confused, unrespo /Reproduction History /Reproductive History - real estate intern: /Reproductive Hx- real estate intern Hx Now No 07/18/24 10:28 Gestational Age (in weeks): EDC: Hx Hx Para Hx Section SAB No 07/18/24 10:28 Active Medications Active Medications: Current Medications Generic Name Dose Route Start Last Admin Trade Name Freq PRN Reason Stop Dose Admin Acetaminophen 650 mg 07/17/24 19:52 Acetaminophen 325 Mg Tablet PO Q6H PRN PRN Pain 1-10 Or Fever >100.7 Albuterol Sulfate 2.5 mg 07/17/24 19:52 Albuterol 2.5 Mg/3 Ml Vial.Neb. INHALATION Q2H PRN PRN SOB &/OR WHEEZING Fluoxetine HCl 20 mg 07/18/24 10:00 Fluoxetine 20 Mg Capsule PO DAILY VIJAY Fluticasone Propionate 1 spray 07/17/24 22:00 07/18/24 10:22 Fluticasone 0.05% 1 [place] Nasal.Sry NASAL 1 spray Q12 VIJAY Administration Hydralazine HCl 5 mg 07/17/24 20:01 07/18/24 03:02 Hydralazine 20 Mg/Ml Vial IV 5 mg Q8H PRN PRN Administration prn SBP >185 Protocol Sodium Chloride 100 mls @ 15 mls/hr 07/17/24 19:06 07/18/24 00:00 IV 0 mls/hr .Q6H40M PRN Infusion Saline Flush Sodium Chloride 100 mls @ 15 mls/hr 07/17/24 19:06 IV .Q6H40M PRN Additional IVPB Infusion Vancomycin IV-PHARMACY TO DOSE 500 mls @ 250 mls/hr 07/17/24 19:52 1 each/ Sodium Chloride IV X1 PRN Rx to Dose Protocol Pantoprazole Sodium 40 mg/ 110 mls @ 330 mls/hr 07/17/24 22:00 07/18/24 11:03 Sodium Chloride IV Infused Q12 VIJAY Infusion Vancomycin HCl 1,750 mg/ 535 mls @ 250 mls/hr 07/18/24 10:00 07/18/24 10:22 Sodium Chloride IV 250 mls/hr Q12H VIJAY Administration Melatonin 3 mg 07/17/24 19:52 Melatonin 3 Mg Tablet PO QHS PRN PRN INSOMNIA Ondansetron HCl 4 mg 07/17/24 19:52 Ondansetron 4 Mg/2 Ml Vial IV Q8H PRN PRN NAUSEA/VOMITING Senna/Docusate Sodium 2 tablet 07/17/24 19:52 Senna/Docusate Sodium 1 Tablet PO BID PRN PRN Constipation Sodium Chloride 10 - 40 ml 07/17/24 19:06 07/18/24 06:02 0.9% Saline Lock 10 Ml Syringe IV 10 ml UD PRN Administration SALINE FLUSH Vancomycin Protocol 1 lab 07/19/24 08:30 Vancomycin Trough/Random Due 07/19/24 10:30 DAILY [facility] PFSH Medical History (Updated 07/17/24 @ 17:00 by Peter Price MD) Depression Home Medications ?Medication ?Instructions ?Recorded ?Last Taken ?Type albuterol sulfate 90 mcg/actuation 2 puff inhalation Q4H PRN PRN 07/17/24 07/17/24 History aerosol inhaler wheezing cephalexin 500 mg capsule 500 mg PO 4X/DAY 07/17/24 07/17/24 History fluoxetine 20 mg capsule 20 mg PO DAILY 07/17/24 07/16/24 History fluticasone propionate 50 1 spray intranasal Q12H allergies 07/17/24 07/18/24 History mcg/actuation nasal spray,suspension Allergy/AdvReac Type Severity Reaction Status Date / Time sulfamethoxazole (From AdvReac Intermediate Fatigue, Verified 07/18/24 14:32 Bactrim) loss of appetite trimethoprim (From Bactrim) AdvReac Intermediate Fatigue, Verified 07/18/24 14:32 loss of appetite oseltamivir (From Tamiflu) AdvReac Vomiting Verified 07/17/24 14:38 Social History (Updated 07/17/24 @ 15:53 by Vivian Kaiser) household members: spouse housing: house Smoking Status: Never smoker Review of Systems (Anesthesia) ROS Narrative System reviewed and no additional complaints, except as documented.
[2024-07-18 14:26] LABS: Internal QC Validated? YES +Cl - CLEAR BKGD; Pregnancy, Serum, hCG Quali. NEGATIVE Negative
--- NOTE | 2024-07-18 15:11 | PN_ITS ---
Progress Note 43-year-old female presents with near syncope that happened prior to arrival. She relates history that she was taking Bactrim for an abscess, which was giving her side effects. She recently switched to Keflex which she has been taking, and has taken before. She states she woke up this morning and felt fine and went about her day. However, when she was at work, she had a near syncopal episode. While she was standing, she felt as if she was going to go down, but caught herself. She denies that she had any loss of consciousness or a true sy ncopal episode. No chest pain or shortness of breath. She has had intermittent headaches over the last few days, but states that it is secondary to her sinuses. She currently does not have a headache. She feels improved but came in for evaluation of her near syncopal episode. # I was asked to see her due to and anemia with concern for GI bleed. Her hemoglobin 5.4 with near syncopal episode however symptoms completely resolved and patient with negative orthostats Physical Exam Const alert, oriented x3, no apparent distress and healthy appearing General Appearance: cooperative GI normal to inspection, nondistended, normoactive bowel sounds, soft to palpation, non-tender and non-distended Percussion: normal to percussion Rectal Exam: deferred Assessment & Plan Assessment/Plan (1) GI bleed: PLAN: Plan #Anemia with concern for GI bleed -Hemoglobin 5.4 with near syncopal episode however symptoms completely resolved and patient with negative orthostats -Patient did have dark stool but she reports that it has been improving, FOBT was positive but rectal exam with no joana blood -Patient typed and crossed with plans to transfuse 2 units packed blood cells -IV PPI -Trend H&H -She will undergo an upper endoscopy evaluate upper GI tract. She was explained alternatives, risk and benefits include not withstanding bleeding, pressure, s epsis, perforation, need for return to . She will have an ASA of 3. Visit Charges Inpatient E&M: 26674 Subs Hosp L3
--- NOTE | 2024-07-18 15:43 | PCM.POST.ANE ---
Anesthesia: Postop Eval I Current Vital Signs Temperature: 97.7 F Pulse Rate: 98 Blood Pressure: 118/66 Respiratory Rate: 18 Pulse Ox: 99 Oxygen Delivery Method: Room Air Assessment Airway patent: Yes Spontaneous unlabored respirations: Yes Mental status: Awake nausea: No Vomiting: No Anesthesia Complication: No Fluid Hydration Crystalloid volume administer (ml): 20 Total IV fluid infused: 20 Progress Note Anesthesia document: Postop Eval 1 completed: Yes
--- NOTE | 2024-07-18 15:44 | OP.EGD_ITS ---
Patient Name: Macarena Chance Procedure Date: 07/18/2024 3:08 PM Date of : 1980 Age: 43 Procedure: Upper GI endoscopy Indications: Melena Providers: Rai Coulter DO Medicines: Monitored Anesthesia Care Patient Profile: This is a 43 year old female. Refer to note in patient chart for documentation of history and physical. Patient has symptoms. Complications: No immediate complications. Procedure: Pre-Anesthesia Assessment: - Prior to the procedure, a History and Physical was performed, and patient medications and allergies were reviewed. The risks and benefits of the procedure and the sedation options and risks were discussed with the patient. All questions were answered and informed consent was obtained. Patient identification and proposed procedure were verified by the physician in the pre-procedure area. Mental Status Examination: alert and oriented. Airway Examination: normal oropharyngeal airway and neck mobility. Respiratory Examination: clear to auscultation. CV Examination: normal. ASA Grade Assessment: II - A patient with mild systemic disease. After reviewing the risks and benefits, the patient was deemed in satisfactory condition to undergo the procedure. The anesthesia plan was to use monitored anesthesia care (MAC). Immediately prior to administration of medications, the patient was re-assessed for adequacy to receive sedatives. The heart rate, respiratory rate, oxygen saturations, blood pressure, adequacy of pulmonary ventilation, and response to care were monitored throughout the procedure. The physical status of the patient was re-assessed after the procedure. After obtaining informed consent, the endoscope was passed under direct vision. Throughout the procedure, the patient's blood pressure, pulse, and oxygen saturations were monitored continuously. The gastroscope was introduced through the mouth, and advanced to the fourth part of the duodenum. Small bowel enteroscopy was deemed necessary. The upper GI endoscopy was accomplished with ease. The patient tolerated the procedure well. Scope In: 3:26:13 PM Scope Out: 3:34:16 PM Total Procedure Duration Time 0 hours 8 minutes 3 seconds Findings: The examined esophagus was normal. A small hiatal hernia was present. No other significant abnormalities were identified in a careful examination of the stomach. 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 For hemostasis, one hemostatic clip was successfully placed. Clip meringuer: [employer]. There was no bleeding at the end of the procedure. Coagulation for destruction of remaining portion of lesion using heater probe was successful. Estimated blood loss was minimal. Impression: - Normal esophagus. - Small hiatal hernia. - No specimens collected. - Dielafoy lesion Recommendation: - [facility] patient to [facility] for [facility] care. - Full liquid diet today. - Continue present medications. Procedure Code(s): --- Professional --- 20648, Small intestinal endoscopy, enteroscopy beyond second portion of duodenum, not including ileum; with ablation of tumor(s), polyp(s), or other lesion(s) not amenable to removal by hot biopsy forceps, bipolar cautery or snare technique 58644, 59,51, Small intestinal endoscopy, enteroscopy beyond second portion of duodenum, not including ileum; with control of bleeding (eg, injection, bipolar cautery, unipolar cautery, laser, heater probe, stapler, plasma poultry barn manager) CPT copyright 2021 [employer]. All rights reserved. The codes documented in this report are preliminary and upon pearl hand review may be revised to meet current compliance requirements. Rai Coulter DO 07/18/2024 3:43:49 PM This report has been signed electronically. Number of Addenda: 0 Note Initiated On: 07/18/2024 3:08 PM
--- NOTE | 2024-07-18 19:37 | PCM.POSTANE2 ---
Anesthesia Postop Eval I Sum Postop Eval Completion status Anesthesia document: Postop Eval 1 completed: Yes Anesthesia Postop Eval I Summary Anesthesia Postop Eval I Summary: Anesthesia Postop Eval I: Assessment Summary Airway patent Yes 07/18/24 15:44 [email or web address] Spontaneous unlabored Yes 07/18/24 15:44 [email or web address] respirations Mental status Awake 07/18/24 15:44 [email or web address] nausea No 07/18/24 15:44 [email or web address] Vomiting No 07/18/24 15:44 [email or web address] Anesthesia Postop Eval I: Fluid Summary Crystalloid volume administer 20 07/18/24 15:44 [email or web address] (ml) Colloids volume administered ( ml) Blood Product volume administered (ml) Total IV fluid infused 20 07/18/24 15:44 [email or web address] Anesthesia Postop Eval I: Summary Notes Anesthesia Complication No 07/18/24 15:44 [email or web address] Anesthesia Complication Comment: Post-operative progress note Anesthesia: Postop Eval II Evaluation Mental status: Awake and Calm Pain Level: 0 nausea: No Vomiting: No Complications Anesthesia Complication: No
[2024-07-19 04:00] VITALS: BP 157/79; PULSE 92; RESP 16; TEMP 37; O2SAT 99
[2024-07-19 07:11] LABS: Absolute Lymphocyte Count 2.61 X10^3/uL (0.83-4.51); Absolute Neutrophil Count 14.8 X10^3/uL (2.0-7.7); Basophil# 0.03 X10^3/uL; Basophil% 0.2 % (0-1); Eosinophil# 0.22 X10^3/uL; Eosinophils% 1.2 % (0-5); Hematocrit 22.7 % (37-47); Hemoglobin 7.3 g/dL (12.0-15.0); Lymphocyte # 2.61 X10^3/ul (0.83-4.51); Lymphocyte % 13.9 % (19-41); Mean Corp Hgb Conc 32.2 g/dL (32-36); Mean Corpuscular Hgb 27.4 pg (27.0-32.0); Mean Corpuscular Volume 85.3 fL (81-99); Mean Platelet Vol. 8.6 fl (6.2-12.0); Monocyte# 0.69 X10^3/uL; Monocyte% 3.7 % (0-10); NRBC Flagged by Analyzer 0.3 % (0-5); Neutrophil # 14.83 X10^3/uL (2.7-7.7); Neutrophil % 78.9 % (47-70); Platelet Count 313 K/mm3 (150-450); RBC Distribution Width CV 15.1 % (11.6-14.6); Red Blood Count 2.66 M/mm3 (4.2-5.4); White Blood Count 18.8 K/mm3 (4.4-11.0)
[2024-07-19 07:53] LABS: Anion Gap 10 (5-15); BUN 10 mg/dL (4-19); Calcium,Total 8.1 mg/dL (7.6-11.0); Chloride 107 mmol/L (98-108); Creatinine, Serum 0.73 mg/dL (0.70-1.20); EST Glomerular Filtration Rate 103 (>60); Estimated Creatinine Clearance 127.85 ml/min (50-250); Glucose 118 mg/dL (70-99); Potassium 3.8 mmol/L (3.3-5.1); Sodium Level 138 mmol/L (133-145)
[2024-07-19] MEDS: Pantoprazole Sodium 40 MG in 0.9% Normal Saline (100mL MB+) 100 ML 330 MG IV (08:29)
[2024-07-19] MEDS: Fluticasone 0.05% 1 SPRAY NASAL.SRY NASAL (08:30)
[2024-07-19] MEDS: FLUoxetine 20 MG Capsule PO (08:30)
[2024-07-19 08:32] VITALS: BP 143/78; PULSE 87; RESP 16; TEMP 36.9; O2SAT 97
[2024-07-19 10:17] LABS: Vancomycin, Trough Level 14.6 ug/mL (5.0-15.0)
[2024-07-19 11:22] VITALS: BP 142/67; PULSE 92; RESP 16; TEMP 36.7; O2SAT 97
[2024-07-19 11:37] VITALS: BP 128/61; PULSE 88; RESP 16; TEMP 36.6; O2SAT 97
--- NOTE | 2024-07-19 11:51 | WOUNDNOTE ---
wound photo: left upper abdomen
[2024-07-19 12:37] VITALS: BP 140/78; PULSE 88; RESP 16; TEMP 36.9; O2SAT 98
--- NOTE | 2024-07-19 12:54 | PCM.RX.CS ---
Consult Antibiotic Management Pharmacy has been consulted to manage selected antibiotic: Vancomycin Type of Intervention Type of Consult: Follow-up Labs Labs: Sodium 138 mmol/L (133-145) 07/19/24 06:22 Potassium 3.8 mmol/L (3.3-5.1) 07/19/24 06:22 Chloride 107 mmol/L (98-108) 07/19/24 06:22 Carbon Dioxide 22.0 mmol/L (21.0-32.0) 07/19/24 06:22 Anion Gap 10 (5-15) 07/19/24 06:22 BUN 10 mg/dL (4-19) 07/19/24 06:22 Creatinine 0.73 mg/dL (0.70-1.20) 07/19/24 06:22 Est GFR (MDRD) Non-Af 103 (>60) 07/19/24 06:22 BUN/Creatinine Ratio 14.0 RATIO (10-20) 07/19/24 06:22 Glucose 118 mg/dL (70-99) H 07/19/24 06:22 Vancomycin Trough 14.6 ug/mL (5.0-15.0) 07/19/24 09:15 Microbiology Microbiology: Microbiology 07/18/24 10:35 Wound - Breast, Left Wound Culture - Preliminary Staphylococcus aureus 07/17/24 16:25 Stool Stool Occult Blood (SAQIB) - Final Occult Blood Positive Dosing Weight Weight used for dosin lb 12.519 oz Pharmacy Plan for Drug Dosing Pharmacy Plan for Drug Dosing: VANCOMYCIN LEVEL RECEIVED Current Vancomycin Dose: 1750MG Q12H Number of Doses Received: 2 Vancomycin Level: 14.6 Hours Since Last Dose: 11.25 Renal Function: SCr: 0.73, CrCl; 127.85 Renal Function Trend: stable Lab/Micro: Vancomycin Plan/Comments: Trough at 14.6 is therapeutic. Will continue the dose and frequency. Pharmacy will continue to monitor as needed. Pending Level: 07/20/2024 @223 Pharmacy Service will continue to monitor and adjust dosing as required. Follow-Up Labs Follow-Up Labs: Trough: Vancomycin (07/20/2024 @2230)
--- NOTE | 2024-07-19 13:13 | DCINST_ITS ---
Discharge Instructions Diet Discharge Diet: No restrictions DC O2, CPAP, BIPAP needs Home O2 Discharge instructions: No Dressing / Incision Discharge Activity: Return to Normal Activity Dressing / Incision Call your doctor if you observe: Fever of 101 or Higher, Shortness of breath, Dizziness, Fainting spells, Swelling in the ankles, Chest pain and Increased palpitations (irregular heartbeat) Follow Up Care Test Results: Test results from this visit will be discussed in further detail at your follow- up appointment, if applicable. Discharge Plan Admission Admit Date/Time: 07/17/24 18:32 Attending Provider: Orion Rodríguez Primary Care Provider: Ananda Vergara Consulting Providers: Misti Johnston Instructions Patient Instructions: ED Upper GI Bleeding (Stable) Discharge Orders/Prescriptions Prescriptions: New pantoprazole [Protonix] 40 mg tablet,delayed release (DR/EC) 40 mg PO DAILY Qty: 30 0RF Continued cephalexin 500 mg capsule 500 mg PO 4X/DAY albuterol sulfate 90 mcg/actuation HFA aerosol inhaler 2 puff inhalation Q4H PRN PRN (Reason: wheezing) fluoxetine 20 mg capsule 20 mg PO DAILY fluticasone propionate 50 mcg/actuation spray,suspension 1 spray INTRANASAL Q12H Referrals / Follow Up: Ananda Vergara MD [Primary Care Provider] - Within 1 Week FriendRai DO [Med Staff - Active Staff] - Within 1 Month Disposition Disposition (needs filled in before D/C Order can be placed): Home, Self Care
[2024-07-19] MEDS: Vancomycin HCl 1,750 MG in 0.9% Normal Saline (500mL Bag) 500 ML 250 MG IV (13:35)
[2024-07-19 13:36] VITALS: BP 142/74; PULSE 102; RESP 16; TEMP 36.8; O2SAT 98
--- NOTE | 2024-07-19 13:56 | PCM.DC.SUM ---
Providers Date of Admission: 07/17/24 Primary Care Physician: Dr. 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 Routine Comment: Reason for Consult:: abscess under left breast Reason For Visit: SYMPTOMATIC ANEMIA Diagnosis Discharge Diagnosis (1) GI bleed: Status: Acute Code(s): K92.2 - Gastrointestinal hemorrhage, unspecified Medications at Discharge Home Medications albuterol sulfate 90 mcg/actuation aerosol inhaler 2 puff inhalation Q4H PRN PRN wheezing 07/17/24 cephalexin 500 mg capsule 500 mg PO 4X/DAY 07/17/24 fluoxetine 20 mg capsule 20 mg PO DAILY 07/17/24 fluticasone propionate 50 mcg/actuation nasal spray,suspension 1 spray intranasal Q12H allergies 07/17/24 doxycycline monohydrate 100 mg capsule 100 mg PO BID 5 days #10 caps 07/19/24 pantoprazole 40 mg tablet,delayed release (Protonix) 40 mg PO DAILY #30 tabs 07/19/24 Hospital Course Operations None Procedures EGD Summary of Care Provided Minutes Spent on Discharge: 36 Hospital Course: Per HPI: ENRIQUE HARTMAN, is a 43-year-old female with recent antibiotics on Bactrim switched to Keflex presented to [facility] ED 07/13/2024 due to near syncope. This morning she felt fine and went about her day but work she had a near syncopal episode but caught herself. Denies any loss of consciousness. In the ED patient initially hypertensive with 170/91 blood pressure but she was found to have white count of 16.8 and hemoglobin of 5.4 without any noted history of anemia but did begin to have dark stool. Fecal occult positive so hospitalist contacted for admission. Patient evaluated at bedside, she reports that she had a abscess that began to spontaneously drain under her left breast and was initially placed on Bactrim, she developed a dark stool, was very tired and felt unwell and was switched to Keflex on and symptoms improved and she feels that her abscess has also continues significantly improved however today at work she had been feeling well until the middle of her work shift when she was standing there and became very lightheaded and presyncopal, she grabbed onto something and did not completely lose consciousness, symptoms have since resolved but she came to the hospital for evaluation. Reports that her stool had been dark but has been clearing up since she was switched to the Keflex, denies any significant reflux and reports she will occasionally have some heartburn that goes away with [id number] medications, denies any recent changes in this. No abdominal pain or nausea Hospital Course: 1. 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 EGD was performed and demonstrated dieulafoy that was treated with clips. Hemoglobin stabilized at 7.3 I did transfuse her 1 more unit on the day of discharge given the fact that she was still borderline. She was feeling much better and requested discharge home. I discussed with her the possibility for discharge and she expressed understanding of the risk and benefits of going home and she would still like to go home. I do recommend she follow-up with her PCP in 3 to 5 days to monitor her hemoglobin and also have her follow-up with GI as an outpatient as well. Will plan for Protonix 40 mg p.o. daily for 1 month with refills at the discretion of her PCP and GI. 2. Left breast abscess?this opened and drained on its own and it is much better therefore we will continue with p.o. Keflex and will add doxycycline his cultures demonstrating a Staph aureus with no sensitivities currently, Keflex should be fine for MSSA but Doxy can cover community MRSA. Culture is pending however given her significant symptomatic improvement she would still like to go home. PCP can follow-up cultures if necessary on an outpatient basis. 3. Hypertension?unclear if this is a baseline issue or not, it is likely that this is stress related to her abscess and her GI bleeding, it did improve though still not normal for her age. Would recommend outpatient follow-up and initiation of blood pressure medications as indicated on the outpatient basis. 4. Anxiety/depression chronic medical conditions which complicate her care. Her home medications were continued where appropriate Physical Exam Narrative General: Alert, Oriented x3, Cooperative, No apparent distress HEENT: Atraumatic, PERRLA, EOMI, Normocephalic Oral: Moist Mucosa Neck: Supple, No JVD Lungs: Diminished, Normal air movement, No rhonchi, No wheeze, No rales Cardiovascular: Regular rate, Regular Rhythm, Normal S1, Normal S2, No murmurs Abdomen: Soft, Non Tender, Non-Distended, No Hepato-splenomegaly Extremities: No edema, Capillary Refill Less than 3 Seconds Skin: No rashes, No breakdown, left breast abscess dressing intact, photos reviewed Musculoskeletal: No Tenderness to Palpation of Joints or Extremities Neurological: No focal neurological deficits, Motor Exam 5/5 strength throughout, Sensory exam intact to light touch and pain Psych/Mental Status: Normal Affect, Appropriate Weight / BMI Weight Weight: 277 lb 12.519 oz Body Mass Index (BMI) 47.7 ABG / Lab / Microbiology Data 07/19/24 06:22 07/19/24 06:22 Laboratory: Laboratory Results - last 24 hr 07/17/24 15:59: Crossmatch See Detail 07/18/24 07:19: Serum , Qual NEGATIVE 07/19/24 06:22: WBC 18.8 H, RBC 2.66 L, Hgb 7.3 L, Hct 22.7 L, MCV 85.3, MCH 27.4, MCHC 32.2, RDW Std Deviation 46.0 H, RDW Coeff of Carlitos 15.1 H, Plt Count 313, MPV 8.6, Immature Gran % (Auto) 2.100 H, Neut % (Auto) 78.9 H, Lymph % (Auto) 13.9 L, [place] % (Auto) 3.7, Eos % (Auto) 1.2, Baso % (Auto) 0.2, Absolute Neuts (auto) 14.8 H, Absolute Lymphs (auto) 2.61, Nucleated RBC % 0.3, Sodium 138, Potassium 3.8, Chloride 107, Carbon Dioxide 22.0, Anion Gap 10, BUN 10, Creatinine 0.73, Estim Creat Clear Calc 127.85, Est GFR (MDRD) Non-Af 103, BUN/Creatinine Ratio 14.0, Glucose 118 H, Calcium 8.1 07/19/24 09:15: Vancomycin Trough 14.6 Microbiology: Microbiology 07/18/24 10:35 Wound - Breast, Left Wound Culture - Preliminary Staphylococcus aureus 07/17/24 16:25 Stool Stool Occult Blood (SAQIB) - Final Occult Blood Positive D/C Instructions Discharge Diet: No restrictions Call your doctor if you observe: Fever of 101 or Higher, Shortness of breath, Dizziness, Fainting spells, Swelling in the ankles, Chest pain and Increased palpitations (irregular heartbeat) DC O2, CPAP, BIPAP Needs Home O2 Discharge instructions: No Meaningful Use Info Meaningful Use Meaningful Use Diagnoses (Choose all that apply): None applicable Ischemic Stroke Statin Dosing Therapy Reference: STATIN DOSE THERAPY REFERENCE: * Patients > 75 years receive moderate or high dose statin therapy. * Patients 75 years or YOUNGER should receive HIGH intensity statin dose unless contraindicated. You will be required to document reason for non-treatment if statin daily dose does not meet guidelines. HIGH DOSE STATIN THERAPY DAILY Atorvastatin > than or = to 40 mg Rosuvastatin > than or = to 20 mg Amlodipine + Atorvastatin > than or = to 2.5/40 mg Ezetimibe + Simvastatin 10/80 mg Simvastatin 80mg Discharge Plan Admission Admit Date/Time: 07/17/24 18:32 Attending Provider: Orion Rodríguez Primary Care Provider: Ananda Veragra Consulting Providers: Misti Johnston Instructions Patient Instructions: ED Upper GI Bleeding (Stable) Discharge Orders/Prescriptions Prescriptions: New pantoprazole [Protonix] 40 mg tablet,delayed release (DR/EC) 40 mg PO DAILY Qty: 30 0RF doxycycline monohydrate 100 mg capsule 100 mg PO BID 5 Days Qty: 10 0RF Continued cephalexin 500 mg capsule 500 mg PO 4X/DAY albuterol sulfate 90 mcg/actuation HFA aerosol inhaler 2 puff inhalation Q4H PRN PRN (Reason: wheezing) fluoxetine 20 mg capsule 20 mg PO DAILY fluticasone propionate 50 mcg/actuation spray,suspension 1 spray INTRANASAL Q12H Referrals / Follow Up: Ananda Vergara MD [Primary Care Provider] - Within 1 Week Rai Coulter DO [Med Staff - Active Staff] - Within 1 Month Disposition Disposition (needs filled in before D/C Order can be placed): Home, Self Care Charges/Coding Visit Charges Inpatient E&M: 97929 Disch Hosp >30min
--- NOTE | 2024-07-19 14:40 | CASEMGMT ---
Patient has order for discharge. RN CM in to discuss needs at discharge. Patient denies needs or help at discharge. Patient had no further questions or concerns.
--- NOTE | 2024-07-19 15:30 | PHA.DC.MC.R ---
Pharmacy [facility] Pharmacy Service has performed discharge medication reconciliation and counseling for this patient. 1. DOXYCYCLINE 100MG PO BID X 5 DAYS 2. PANTOPRAZOLE 40MG PO DAILY The patient's discharge medication list was reviewed for discrepancies and discrepancies were resolved. The patient was counseled on the following discharge medications and changes in medications for homegoing were reviewed. The Reason for Use, instructions for use, and potential side effects were reviewed for all new medications. The patient's questions regarding all of their medications were answered. The patient was able to verbally demonstrate an understanding of their discharge medications. Medications at Discharge Home Medications albuterol sulfate 90 mcg/actuation aerosol inhaler 2 puff inhalation Q4H PRN PRN wheezing 07/17/24 cephalexin 500 mg capsule 500 mg PO 4X/DAY 07/17/24 fluoxetine 20 mg capsule 20 mg PO DAILY 07/17/24 fluticasone propionate 50 mcg/actuation nasal spray,suspension 1 spray intranasal Q12H allergies 07/17/24 doxycycline monohydrate 100 mg capsule 100 mg PO BID 5 days #10 caps 07/19/24 pantoprazole 40 mg tablet,delayed release (Protonix) 40 mg PO DAILY #30 tabs 07/19/24
== END 2024-07-19 17:33 | disposition home or self-care (01) | DRG 378 ==
LOC: ED 17:00 → PCU 20:14
PROVIDERS: Anesthesiology; Internal Medicine Gastroenterology; Admitting Provider Internal Medicine; Emergency Provider Emergency Medicine; PCP Family Medicine; Visit Provider Family Medicine
PROC: 0DJ08ZZ Inspection of Upper Intestinal Tract, Via Natural or Artificial Opening Endoscopic (ICD-10-PCS; CPT 43235; principal; 2024-07-18 14:25)
DX: K92.2 Gastrointestinal hemorrhage, unspecified (principal); Z68.42 Body mass index [BMI] 45.0-49.9, adult; D62 Acute posthemorrhagic anemia; E66.01 Morbid (severe) obesity due to excess calories; I10 Essential (primary) hypertension; F32.A Depression, unspecified; K44.9 Diaphragmatic hernia without obstruction or gangrene; F41.9 Anxiety disorder, unspecified; N61.1 Abscess of the breast and nipple
CPT/HCPCS: 36415; 80048; 80053; 80202; 82274; 84703; 85025; 85027; 85610; 85730; 86850; 86900; 86901; 87070; 87077; 87186; 87205; 93005; 99285; P9016; A4216; J2405

== ENCOUNTER 2024-09-21 07:09 | Observation (INO) | payer OTHER, SELFPAY ==
[2024-09-21] VITALS (12 sets, daily range): BP systolic 153–235; BP diastolic 72–121; PULSE 73–125; RESP 16–22; TEMP 35.9–36.9; O2SAT 94–100; BMI 47.8; BMI 47.0
--- NOTE | 2024-09-21 07:24 | EKG12_ITS ---
Test Reason : HTN Blood Pressure : */* mmHG Vent. Rate : 113 BPM Atrial Rate : 113 BPM P-R Int : 140 ms QRS Dur : 90 ms QT Int : 340 ms P-R-T Axes : 59 34 53 degrees QTcB Int : 466 ms Sinus tachycardia Otherwise normal ECG Confirmed by Onur Alvarado ([id number]), dictionary editor KRUNAL MENEZES ([id number]) on 09/25/2024 11:34:59 AM Referred By: VINH Confirmed By: Onur Alvarado
--- NOTE | 2024-09-21 07:25 | EX.ED.DYSGE1 ---
HPI History of Present Illness Chief Complaint: Hypertension Detail of Chief Complaint: Hypertension Informant: patient Narrative Narrative: Patient presents to the emergency department with complaint of elevated blood pressure. Patient states that she saw her primary care physician yesterday because she had turned her neck about 3 days ago and felt some pulling in the right side of her neck. She had some discomfort since that time and may be some mild weakness in the right arm. Patient was given a muscle relaxer yesterday. In the office she was noted to be hypertensive with systolic in the 180s. Patient tells me she was advised to come to the emergency department yesterday but opted to wait till today. Patient denies headache or chest pain or shortness of breath. Denies recent travel or surgery. She tells me she had an admission in June for an upper GI bleed with a hemoglobin of 5.4. She had cautery of lesions in the upper GI tract. She has had no further blood in her stool or black tarry stools. She otherwise feels well. She is currently not being treated for blood pressure. During her hospital visit in June she was also noted to be hypertensive with systolics into the 190s. She does have history of depression and anxiety however she has been taking her Prozac regularly. Work has been more stressful. [facility] Medical History (Updated 09/21/24 @ 09:[address] Jean Soliman, DO) Anxiety Depression Home Medications ?Medication ?Instructions ?Recorded ?Last Taken ?Type albuterol sulfate 90 mcg/actuation 2 puff inhalation Q4H PRN PRN 07/17/24 07/17/24 History aerosol inhaler wheezing cephalexin 500 mg capsule 500 mg PO 4X/DAY 07/17/24 07/17/24 History fluoxetine 20 mg capsule 20 mg PO DAILY 07/17/24 07/16/24 History fluticasone propionate 50 1 spray intranasal Q12H allergies 07/17/24 07/18/24 History mcg/actuation nasal spray,suspension doxycycline monohydrate 100 mg 100 mg PO BID 5 days #10 caps 07/19/24 Unknown Rx capsule pantoprazole 40 mg tablet,delayed 40 mg PO DAILY #30 tabs 07/19/24 Unknown Rx release (Protonix) Allergy/AdvReac Type Severity Reaction Status Date / Time sulfamethoxazole (From AdvReac Intermediate Fatigue, Verified 09/21/24 07:12 Bactrim) loss of appetite trimethoprim (From Bactrim) AdvReac Intermediate Fatigue, Verified 09/21/24 07:12 loss of appetite oseltamivir (From Tamiflu) AdvReac Vomiting Verified 09/21/24 07:12 Social History (Updated 07/17/24 @ 15:53 by Vivian Kaiser) household members: spouse housing: house Smoking Status: Never smoker ROS ROS ED Review of Systems ROS Unobtainable: other Constitutional Constitutional ED: Reports lethargy; Denies chills, fever(s), sweats or weight loss Eyes Eyes: Denies blurry vision, change in vision or diplopia ENT ENT ED: Denies rhinorrhea or sore throat Cardiovascular Cardiovascular: Denies chest pain, orthopnea or racing heartbeat Respiratory/Chest Respiratory/Chest: Denies cough, dyspnea, dyspnea on exertion, orthopnea or sputum Gastrointestinal Gastrointestinal: Denies abdominal pain, diarrhea, nausea or vomiting Genitourinary Genitourinary ED: Denies dysuria, hematuria or urinary frequency Musculoskeletal Musculoskeletal: Reports neck pain; Denies arthralgias, back pain or myalgias Integumentary Denies abscess, Abrasions or rash Neurologic Neurologic: Denies headache(s) or weakness Psychiatric Psychiatric: Denies anxiety, depression or suicidal thoughts Endocrine Endocrinology: Denies polydipsia, polyphagia or polyuria Hematologic/Lymphatic Hematologic/Lymphatic: Denies easy bleeding, easy bruising or lymphadenopathy Allergic/Immunologic Allergic/Immunologic ED: Denies mouth swelling, tongue swelling or urticaria EXAM Physical Exam Const Vital Signs: 09/21/24 07:09 09/21/24 07:09 09/21/24 07:36 Temperature 98 F Temperature Source Temporal Pulse Rate 122 H 125 H Respiratory Rate 22 H 20 H Respiratory Pattern Normal Blood Pressure 228/121 H 235/113 H Blood Pressure Mean 156 153 Pulse Ox 100 100 Oxygen Delivery Method Room Air Positive well nourished and well developed General Appearance ED: well developed and NAD HEENT Reports TM's clear and moist mucous membranes normocephalic and atraumatic; Negative for trauma or tenderness Tympanic Membrane ED: Yes TM's clear Eyes PERRL and EOMs intact bilaterally General Eye ED: Negative for pale conjunctiva or scleral icterus Neck no lymphadenopathy, supple and no JVD Neck Narrative: Mild tenderness over right cervical paraspinal musculature. No bony tenderness on exam. General: tenderness Chest Wall inspection of chest normal and palpation of chest normal Chest: Negative for tenderness Resp normal respiratory effort and clear to auscultation bilaterally Effort and Inspection: Negative for respiratory distress or pain with movement Auscultation: Negative for rhonchi, wheezes or diminished lung sounds Cardio regular rate, regular rhythm, S1 normal heart sound, S2 normal heart sound and no murmurs Peripheral Pulses: pulses 2+ throughout GI normal to inspection, nondistended, normoactive bowel sounds, soft to palpation, non-tender, non-distended and no masses Back/Spine no CVA tenderness and no thoracic nor lumbar tenderness Extremity normal to inspection General Extremety ED: Negative for edema General Extremity: Negative for edema Neuro oriented x3, CN's II-XII intact bilaterally, no sensory deficits noted and gait normal Sensorium / Orientation: awake, alert, oriented to person, oriented to place and oriented to time Motor Exam: strength 5/5 throughout and strength abnormal Psych mental status grossly normal Skin no rashes or lesions noted and no wounds MDM MDM MDM Narrative Medical decision making narrative: Patient presents to the emergency department complaint of elevated blood pressures. She is currently not on blood pressure medication. Was advised to come to the ER yesterday but waited till today. No PE risk factors. Not having chest pain. Noted to be tachycardic on arrival. In the differential would be acute coronary syndrome versus PE or infectious process. IV line established. EKG obtained on arrival showed a sinus tachycardia with rate of 113 bpm with no acute ST segment changes. CBC with differential obtained showed white count of 9.7 with hemoglobin 11.4 and platelet count of 290,000. Chemistries unremarkable. D-dimer elevated 1.48. hCG was negative. Troponin was normal less than 6. Urinalysis was normal. I did obtain a CTA of the chest that showed nonocclusive small PEs in the upper and lower lobes bilaterally. Discussed case with hospitalist. Initially gave patient a milligram of Ativan IV and her pressure maintained in the 218 over low 100s. I ordered labetalol IV. Discussed case with hospitalist will evaluate patient for admission. I was asked to start patient on heparin given her recent history of GI bleed. Lab Data Attestation: I reviewed the patient's lab results. Labs: Laboratory Results - last 24 hr 09/21/24 09/21/24 07:30 08:19 WBC 9.7 RBC 4.53 Hgb 11.4 L Hct 37.1 MCV 81.9 MCH 25.2 L MCHC 30.7 L RDW Std Deviation 47.2 H RDW Coeff of [place] 15.7 H Plt Count 290 MPV 8.9 Immature Gran % (Auto) 0.500 Neut % (Auto) 64.4 Lymph % (Auto) 20.7 [place] % (Auto) 6.0 Eos % (Auto) 7.9 H Baso % (Auto) 0.5 Absolute Neuts (auto) 6.3 Absolute Lymphs (auto) 2.01 Nucleated RBC % 0 D-Dimer Quant (PE/DVT) 1.48 H* Sodium 137 Potassium 3.9 Chloride 101 Carbon Dioxide 21.9 Anion Gap 15 BUN 18 Creatinine 0.82 Estim Creat Clear Calc 114.04 Est GFR (MDRD) Non-Af 90 BUN/Creatinine Ratio 21.6 H Glucose 163 H Calcium 9.8 Troponin T High Sens < 6 Serum , Qual NEGATIVE Urine Color Yellow Urine Clarity Clear Urine pH 6.0 Ur Specific [place] 1.010 Urine Protein Negative Urine Glucose (UA) Normal Urine Ketones Negative Urine Occult Blood Negative Urine Nitrite Negative Urine Bilirubin Negative Urine Urobilinogen Normal Ur Leukocyte Esterase Negative Radiography Diagnostic Testing: Clinical Impression(s) from Imaging Studies Chest CTA 09/21/24 08:16 IMPRESSION: Several small bilateral nonocclusive pulmonary emboli as described. Reading Location: [facility] EKG Initial EKG: Attestation: I personally reviewed and interpreted this EKG as follows: Comments: Sinus rhythm with rate of 113 bpm with no acute ST segment changes Discharge Plan Triage Chief Complaint: Hypertension ED Provider: Jean Soliman Dx/Rx/DC Orders Clinical Impression: Hypertensive urgency, Pulmonary emboli Prescriptions: No Action cephalexin 500 mg capsule 500 mg PO 4X/DAY albuterol sulfate 90 mcg/actuation HFA aerosol inhaler 2 puff inhalation Q4H PRN PRN (Reason: wheezing) fluoxetine 20 mg capsule 20 mg PO DAILY fluticasone propionate 50 mcg/actuation spray,suspension 1 spray INTRANASAL Q12H pantoprazole [Protonix] 40 mg tablet,delayed release (DR/EC) 40 mg PO DAILY Qty: 30 0RF doxycycline monohydrate 100 mg capsule 100 mg PO BID 5 Days Qty: 10 0RF Primary Care Provider: Ananda Vergara Referrals: Ananda Vergara MD [Primary Care Provider] - Print Language: Armenian Disposition Disposition: Acute Care Hospital [facility]
[2024-09-21] MEDS: Lorazepam 2 MG/ML WCH Syringe 1 MG IV (07:41)
[2024-09-21 07:43] LABS: Absolute Lymphocyte Count 2.01 X10^3/uL (0.83-4.51); Absolute Neutrophil Count 6.3 X10^3/uL (2.0-7.7); Basophil# 0.05 X10^3/uL; Basophil% 0.5 % (0-1); Eosinophil# 0.77 X10^3/uL; Eosinophils% 7.9 % (0-5); Hematocrit 37.1 % (37-47); Hemoglobin 11.4 g/dL (12.0-15.0); Lymphocyte # 2.01 X10^3/ul (0.83-4.51); Lymphocyte % 20.7 % (19-41); Mean Corp Hgb Conc 30.7 g/dL (32-36); Mean Corpuscular Hgb 25.2 pg (27.0-32.0); Mean Corpuscular Volume 81.9 fL (81-99); Mean Platelet Vol. 8.9 fl (6.2-12.0); Monocyte# 0.58 X10^3/uL; NRBC Flagged by Analyzer 0 % (0-5); Neutrophil # 6.26 X10^3/uL (2.7-7.7); Neutrophil % 64.4 % (47-70); Platelet Count 290 K/mm3 (150-450); RBC Distribution Width CV 15.7 % (11.6-14.6); RBC Distribution Width SD 47.2 fl (35.1-43.9); Red Blood Count 4.53 M/mm3 (4.2-5.4); White Blood Count 9.7 K/mm3 (4.4-11.0)
[2024-09-21 08:12] LABS: D-Dimer Quantitative (DVT/PE) 1.48 FEU/ug/m (0.27-0.49)
[2024-09-21 08:13] LABS: Internal QC Validated? YES +Cl - CLEAR BKGD; Pregnancy, Serum, hCG Quali. NEGATIVE Negative
--- NOTE | 2024-09-21 08:16 | CT_ITS ---
PROCEDURE: CTA CHEST W/WO CONTRAST 09/21/2024 REASON FOR EXAM: ELEVATED D-DIMER, HTN TECHNIQUE: CTA axial imaging of the chest with intravenous contrast. Multiplanar and multisequence images were obtained. PATIENT PREPARATION: Per protocol One or more dose reduction techniques were used (e.g., Automated exposure control, adjustment of the mA and/or kV according to patient size, use of iterative reconstruction technique). CONTRAST: Isovue 370 VOLUME: 100 mL RADIATION DOSE SUMMARY: CTDlvol: 11.5 mGy DLP: 514.52 mGycm COMPARISON: None FINDINGS: Hardware: None Lymph nodes: No suspicious lymph nodes are seen. Heart: No coronary artery calcification. Thoracic Aorta: No thoracic aortic aneurysm or dissection. Pulmonary Vessels: There are several nonocclusive intraluminal filling defects in branches of the right and left upper and lower pulmonary arteries suggestive of pulmonary emboli. Lungs and Airways: Unremarkable Pleura: No pleural effusion. Upper Abdomen: Unremarkable Bones: Unremarkable. CT/CTA Chest W/WO Contrast IMPRESSION: Several small bilateral nonocclusive pulmonary emboli as described. Reading Location: [id number]
[2024-09-21 08:17] LABS: Anion Gap 15 (5-15); BUN 18 mg/dL (4-19); BUN/Creat Ratio 21.6 RATIO (10-20); Calcium,Total 9.8 mg/dL (7.6-11.0); Carbon Dioxide 21.9 mmol/L (21.0-32.0); Chloride 101 mmol/L (98-108); Creatinine, Serum 0.82 mg/dL (0.70-1.20); EST Glomerular Filtration Rate 90 (>60); Estimated Creatinine Clearance 114.04 ml/min (50-250); Glucose 163 mg/dL (70-99); Potassium 3.9 mmol/L (3.3-5.1); Sodium Level 137 mmol/L (133-145)
[2024-09-21 08:29] LABS: Bacteria 0 SEEN /hpf (None Seen); Mucous, Urine 0 SEEN /hpf (<or=2+); Red Blood Cells-Urine 0 SEEN /hpf (0-5); White Blood Cells 0 SEEN /hpf (0-5)
[2024-09-21 08:30] LABS: Color, Urine Yellow (Yellow); Glucose, Dipstick Normal (Normal); Ketone-Dipstick Negative (Negative); Leukocyte Esterase-Dipstick Negative /ul (Negative); Nitrite-Dipstick Negative (Negative); Occult Blood-Urine Negative /ul (Negative); Protein-Dipstick Negative (Negative); Urine Bilirubin Dipstick Negative (Negative); Urine Clarity Clear (Clear); Urine Urobilinogen Normal (Normal)
[2024-09-21 08:42] LABS: Troponin T High Sensitivity < 6 ng/L (<=14)
[2024-09-21 09:17] LABS: Squamous Epithelial Cells - UA 0-5 SEEN /hpf (5-10)
[2024-09-21] MEDS: Labetalol 20 MG/4 ML Vial IV (09:18)
--- NOTE | 2024-09-21 09:23 | HP.PCM.HOS_ITS ---
HPI - General General Date of Admission: 09/21/24 Date of Service: 09/21/24 Chief Complaint: Elevated blood pressure HPI Narrative ENRIQUE HARTMAN, is a 43 F who presented to the emergency department with elevated blood pressure.. Patient had apparently been instructed by her primary care physician to present to the emergency department day prior to her admission after she was found to have markedly elevated blood pressure. Patient upon presentation was found to have a blood pressure of 228/121. Patient in addition was found to be tachycardic. D-dimer was subsequently ordered which came back positive resulting in patient undergoing further evaluation with CTA of the chest.CTA demonstrated several small bilateral nonocclusive pulmonary emboli. On further questioning patient however denied any shortness of breath no chest pain no headache. Patient was started on heparin admitted to a monitored bed for subsequent management [facility] Medical History (Updated 09/21/24 @ 09:[address] Jean Soliman, DO) Anxiety Depression Home Medications ?Medication ?Instructions ?Recorded ?Last Taken ?Type albuterol sulfate 90 mcg/actuation 2 puff inhalation Q 4H PRN PRN 07/17/24 07/17/24 History aerosol inhaler wheezing cephalexin 500 mg capsule 500 mg PO 4X/DAY 07/17/24 History fluoxetine 20 mg capsule 20 mg PO DAILY depression 07/16/24 History fluticasone propionate 50 1 spray intranasal Q12H tequila rgies 07/17/24 07/18/24 History mcg/actuation nasal spray,suspension doxycycline monohydrate 100 mg 100 mg PO BID 5 days #1 0 caps 07/19/24 Unknown Rx capsule cyclobenzaprine 10 mg tablet 10 mg PO TID pulled muscl e 09/21/24 Unknown History Allergy/AdvReac Type Severity Reaction Status Date / Time sulfamethoxazole (From AdvReac Intermediate Fatigue, Verified 09/21/24 07:12 Bactrim) loss of appetite trimethoprim (From Bactrim) AdvReac Intermediate Fatigue, Verified 09/21/24 07:12 loss of appetite oseltamivir (From Tamiflu) AdvReac Vomiting Verified 09/21/24 07:12 Social History (Updated 07/17/24 @ 15:53 by Vivian Kaiser) household members: spouse housing: house Smoking Status: Never smoker Vital Signs Vital Signs Vital Signs: 09/21/24 07:09 09/21/24 07:09 09/21/24 07:36 Temperature 98 F Temperature Source Temporal Pulse Rate 122 H 125 H Respiratory Rate 22 H 20 H Respiratory Pattern Normal Blood Pressure 228/121 H 235/113 H Blood Pressure Mean 156 153 Pulse Ox 100 100 Oxygen Delivery Method Room Air 09/21/24 09:09 Temperature Temperature Source Pulse Rate 118 H Respiratory Rate 18 Respiratory Pattern Blood Pressure 216/110 H Blood Pressure Mean 145 Pulse Ox 100 Oxygen Delivery Method Weight Weight: 126.4 kg Body Mass Index (BMI) 47.8 Results Lab / Micro Data 09/21/24 07:30 09/21/24 07:30 Labs: Laboratory Results - last 24 hr 09/21/24 07:30: WBC 9.7, RBC 4.53, Hgb 11.4 L, Hct 37.1, MCV 81.9, MCH 25.2 L, M CHC 30.7 L, RDW Std Deviation 47.2 H, RDW Coeff of [place] 15.7 H, Plt Count 290, MPV 8.9, Immature Gran % (Auto) 0.500, Neut % (Auto) 64.4, Lymph % (Auto) 20.7, [place] % (Auto) 6.0, Eos % (Auto) 7.9 H, Baso % (Auto) 0.5, Absolute Neuts (auto) 6.3, Absolute Lymphs (auto) 2.01, Nucleated RBC % 0, D-Dimer Quant (PE/DVT) 1.48 H*, Sodium 137, Potassium 3.9, Chloride 101, Carbon Dioxide 21.9, Anion Gap 15, BUN 18, Creatinine 0.82, Estim Creat Clear Calc 114.04, Est GFR (MDRD) Non-Af 90, BUN/Creatinine Ratio 21.6 H, Glucose 163 H, Calcium 9.8, Troponin T High Sens < 6, Serum , Qual NEGATIVE 09/21/24 08:19: Urine Color Yellow, Urine Clarity Clear, Urine pH 6.0, Ur Specific [place] 1.010, Urine Protein Negative, Urine Glucose (UA) Normal, Urine Ketones Negative, Urine Occult Blood Negative, Urine Nitrite Negative, Urine Bilirubin Negative, Urine Urobilinogen Normal, Ur Leukocyte Esterase Negative, Urine RBC 0 SEEN, Urine WBC 0 SEEN, Ur Squamous Epith Cells 0-5 SEEN, Urine Bacteria 0 SEEN, Urine Mucus 0 SEEN Imaging Radiology Impression Chest CTA 09/21/24 08:16 IMPRESSION: Several small bilateral nonocclusive pulmonary emboli as described. Reading Location: [id number] Assessment & Plan Assessment/Plan PLAN: Plan Hospital Course: 1. Acute blood loss anemia secondary to a GI bleed from a Dieulafoy lesion?[age]-year-old female who works he has presented to the hospital with acute blood loss anemia. EGD was performed and demonstrated dieulafoy that was treated with clips. Hemoglobin stabilized at 7.3 I did transfuse her 1 more unit on the day of discharge given the fact that she was still borderline. She was feeling much better and requested discharge home. I discussed with her the possibility for discharge and she expressed understanding of the risk and benefits of going home and she would still like to go home. I do recommend she follow-up with her PCP in 3 to 5 days to monitor her hemoglobin and also have her follow-up with GI as an outpatient as well. Will plan for Protonix 40 mg p.o. daily for 1 month with refills at the discretion of her PCP and GI. 2. Left breast abscess?this opened and drained on its own and it is much better therefore we will continue with p.o. Keflex and will add doxycycline his cultures demonstrating a Staph aureus with no sensitivities currently, Keflex should be fine for MSSA but Doxy can cover community MRSA. Culture is pending however given her significant symptomatic improvement she would still like to go home. PCP can follow-up cultures if necessary on an outpatient basis. 3. Hypertension?unclear if this is a baseline issue or not, it is likely that this is stress related to her abscess and her GI bleeding, it did improve though still not normal for her age. Would recommend outpatient follow-up and initiation of blood pressure medications as indicated on the outpatient basis. 4. Anxiety/depression chronic medical conditions which complicate her care. Her home medications were continued where appropriate
--- NOTE | 2024-09-21 09:23 | PCM.HP.STD ---
HPI - General General Date of Admission: 09/21/24 Date of Service: 09/21/24 Chief Complaint: Elevated blood pressure HPI Narrative ENRIQUE HRATMAN, is a 43 F who presented to the emergency department with elevated blood pressure.. Patient had apparently been instructed by her primary care physician to present to the emergency department day prior to her admission after she was found to have markedly elevated blood pressure. Patient upon presentation was found to have a blood pressure of 228/121. Patient in addition was found to be tachycardic. D-dimer was subsequently ordered which came back positive resulting in patient undergoing further evaluation with CTA of the chest.CTA demonstrated several small bilateral nonocclusive pulmonary emboli. On further questioning patient however denied any shortness of breath no chest pain no headache. Patient was started on heparin admitted to a monitored bed for subsequent management [facility] Medical History (Updated 09/21/24 @ 09:[address] Jean Soliman, DO) Anxiety Depression Home Medications ?Medication ?Instructions ?Recorded ?Last Taken ?Type albuterol sulfate 90 mcg/actuation 2 puff inhalation Q4H PRN PRN 07/17/24 07/17/24 History aerosol inhaler wheezing cephalexin 500 mg capsule 500 mg PO 4X/DAY 07/17/24 07/17/24 History fluoxetine 20 mg capsule 20 mg PO DAILY depression 07/17/24 07/16/24 History fluticasone propionate 50 1 spray intranasal Q12H allergies 07/17/24 07/18/24 History mcg/actuation nasal spray,suspension doxycycline monohydrate 100 mg 100 mg PO BID 5 days #10 caps 07/19/24 Unknown Rx capsule cyclobenzaprine 10 mg tablet 10 mg PO TID pulled muscle 09/21/24 Unknown History Allergy/AdvReac Type Severity Reaction Status Date / Time sulfamethoxazole (From AdvReac Intermediate Fatigue, Verified 09/21/24 07:12 Bactrim) loss of appetite trimethoprim (From Bactrim) AdvReac Intermediate Fatigue, Verified 09/21/24 07:12 loss of appetite oseltamivir (From Tamiflu) AdvReac Vomiting Verified 09/21/24 07:12 Social History (Updated 07/17/24 @ 15:53 by Vivian Kaiser) household members: spouse housing: house Smoking Status: Never smoker ROS ROS Narrative GENERAL: denies fever, chills, night sweats, weight loss, anorexia HEENT: denies headache, sinus congestion, or drainage, dysphagia RESPIRATORY: denies cough, sputum production, shortness of breath, dyspnea on exertion CARDIAC: denies chest pain, palpitations, orthopnea, PND GASTROINTESTINAL: denies abdominal pain, nausea, vomiting, melena, GENITOURINARY: denies dysuria, urgency, frequency, heamaturia EXTREMITY: denies swelling MUSCULOSKELETAL: denies current joint pain or tenderness NEUROLOGIC: denies focal numbness, weakness, tingling HEMATOLOGIC: denies easy bruising and/or hemorrhage INTEGUMENT: denies rashes PSYCHIATRIC: denies suicidal or homicidal ideation Vital Signs Vital Signs Vital Signs: 09/21/24 07:09 09/21/24 07:09 09/21/24 07:36 Temperature 98 F Temperature Source Temporal Pulse Rate 122 H 125 H Respiratory Rate 22 H 20 H Respiratory Pattern Normal Blood Pressure 228/121 H 235/113 H Blood Pressure Mean 156 153 Pulse Ox 100 100 Oxygen Delivery Method Room Air 09/21/24 09:09 Temperature Temperature Source Pulse Rate 118 H Respiratory Rate 18 Respiratory Pattern Blood Pressure 216/110 H Blood Pressure Mean 145 Pulse Ox 100 Oxygen Delivery Method Weight Weight: 126.4 kg Body Mass Index (BMI) 47.8 Physical Exam Narrative GENERAL: cooperative HEENT: Atraumatic; normocephalic EYES; Anicteric, Normal Conjunctiva NECK; supple, normal thyroid, RESPIRATORY: Diminished to auscultation CARDIOVASCULAR: Regular S1 S2, GI: soft, normoactive bowel sounds, : No Renal angle tenderness; EXTREMITIES: No edema, no clubbing, MUSCULOSKELETAL: no muscle wasting NEURO: Awake; no lateralizing signs. SKIN: No Rash PSYCH; Flat affect Results Lab / Micro Data 09/21/24 07:30 09/21/24 07:30 Labs: Laboratory Results - last 24 hr 09/21/24 07:30: WBC 9.7, RBC 4.53, Hgb 11.4 L, Hct 37.1, MCV 81.9, MCH 25.2 L, MCHC 30.7 L, RDW Std Deviation 47.2 H, RDW Coeff of [place] 15.7 H, Plt Count 290, MPV 8.9, Immature Gran % (Auto) 0.500, Neut % (Auto) 64.4, Lymph % (Auto) 20.7, [place] % (Auto) 6.0, Eos % (Auto) 7.9 H, Baso % (Auto) 0.5, Absolute Neuts (auto) 6.3, Absolute Lymphs (auto) 2.01, Nucleated RBC % 0, D-Dimer Quant (PE/DVT) 1.48 H*, Sodium 137, Potassium 3.9, Chloride 101, Carbon Dioxide 21.9, Anion Gap 15, BUN 18, Creatinine 0.82, Estim Creat Clear Calc 114.04, Est GFR (MDRD) Non-Af 90, BUN/Creatinine Ratio 21.6 H, Glucose 163 H, Calcium 9.8, Troponin T High Sens < 6, Serum , Qual NEGATIVE 09/21/24 08:19: Urine Color Yellow, Urine Clarity Clear, Urine pH 6.0, Ur Specific [place] 1.010, Urine Protein Negative, Urine Glucose (UA) Normal, Urine Ketones Negative, Urine Occult Blood Negative, Urine Nitrite Negative, Urine Bilirubin Negative, Urine Urobilinogen Normal, Ur Leukocyte Esterase Negative, Urine RBC 0 SEEN, Urine WBC 0 SEEN, Ur Squamous Epith Cells 0-5 SEEN, Urine Bacteria 0 SEEN, Urine Mucus 0 SEEN Imaging Radiology Impression Chest CTA 09/21/24 08:16 IMPRESSION: Several small bilateral nonocclusive pulmonary emboli as described. Reading Location: [id number] Assessment & Plan Assessment/Plan (1) Pulmonary emboli: (2) Hypertensive urgency: PLAN: Plan Patient is a 43-year-old lady who was admitted with markedly elevated blood pressure found incidentally to have multiple small nonocclusive pulmonary emboli. Admitted to monitored bed for further management 1. Accelerated hypertension ? Patient blood pressure on admission was 228/121. Patient did receive labetalol in the ED. Subsequently ordered amlodipine and metoprolol as well as hydralazine. Further evaluation ordered 2D echo and renal duplex to rule out renal artery stenosis 2. Acute pulmonary embolism ? Found incidentally while the patient was being evaluated for tachycardia. CTA did show several nonocclusive intraluminal filling defects in branches of the right and left upper and lower pulmonary arteries suggestive of pulmonary emboli.. Hypercoagulable studies initiated prior to initiation of heparin. Also ordered renal duplex. 3. Recent admission in June for GI bleed ? Patient was found to have a Dula for lesion per EGD. Patient was discharged on Protonix did explain to patient this may complicate her treatment regarding the pulmonary embolism. She understands the risk and is willing to proceed with systemic anticoagulation. As stated above ordered renal ultrasound of both lower extremities and if patient has recurrence of her bleed she may need to undergo IVC filter placement 4. Class III obesity with BMI of 47.8 ? Complicating care weight loss advised 5. Depression with anxiety ? Patient's of requested 6. Allergic rhinitis ? Fluticasone as needed Time spent in the patient's overall evaluation,decision-making process, review of diagnostic data, adjustment of management, discussion with other providers, nursing nursing and ancillary staff involved in patient's care documentation, 75 Minutes Charges/Coding Visit Charges Inpatient E&M: 83207 Init Hosp L3
[2024-09-21] MEDS: Heparin Injection (Vial) 5,000 UNIT/ML VIAL 9500 UNIT IV (10:00)
[2024-09-21] MEDS: HEPARIN/D5w 25,000 UNITS 25,000 UNITS/250 ML IV.SOLN. 16 UNITS CONT INF (10:00)
[2024-09-21 10:01] LABS: Prothrombin Time (Protime)PT. 13.5 SECONDS (11.7-14.9)
[2024-09-21 10:02] LABS: Partial Thromboplast Time 23.5 Seconds (24.1-36.2)
--- NOTE | 2024-09-21 11:22 | ECHOCS_ITS ---
Reason For Study Reason For Study: PULMONARY EMBOLISM (multiple small bilateral) Procedure This was a 2D Doppler, Color Flow transthoracic echocardiogram. The study was technically difficult. Due to body habitus. Contrast injection was performed. Exam performed portable in patient room. Left Ventricle Normal left ventricle. The estimated ejection fraction is 55-60 %. Right Ventricle Normal right ventricle. Normal systolic function. Atria Normal left atrium. Normal right atrium. Mitral Valve The mitral valve is structurally normal. No prolapse or stenosis seen. Tricuspid Valve Normal tricuspid valve. Aortic Valve The aortic valve is not well visualized in the short axis view. Pulmonic Valve The pulmonic valve is not well visualized. Great Vessels The aortic root is not well visualized. Pericardium/Pleural No pericardial effusion. Medication Diluted definity 3.0ml given slow IV push to enhance endocardial definition. MMode/2D Measurements & Calculations LVIDd: 4.2 cm IVSd: 1.1 cm Ao root diam: 3.1 cm LVIDs: 3.0 cm LVPWd: 1.1 cm RVDd: 2.6 cm FS: 28.1 % LAV(MOD-bp): 47.0 ml LVAd ap4: 24.7 cm2 LVAd ap2: 26.3 cm2 LAV(MOD-bp) Indexed: 21.0 ml/m2 LVLd ap4: 7.7 cm LVLd ap2: 8.1 cm LAV(MOD-sp2): 46.1 ml EDV(MOD-sp4): 64.9 ml EDV(MOD-sp2): 70.1 ml LAV(MOD-sp4): 43.9 ml EDV(sp4-el): 67.2 ml EDV(sp2-el): 72.8 ml LVAs ap4: 14.7 cm2 LVAs ap2: 15.7 cm2 LVLs ap4: 6.7 cm LVLs ap2: 7.1 cm ESV(MOD-sp4): 26.4 ml ESV(MOD-sp2): 28.1 ml ESV(sp4-el): 27.2 ml ESV(sp2-el): 29.2 ml EF(MOD-sp4): 59.3 % EF(MOD-sp2): 59.9 % EF(sp4-el): 59.5 % SV(MOD-sp4): 38.5 ml SV(MOD-sp2): 42.0 ml SV(sp4-el): 40.0 ml SI(MOD-sp4): 17.3 ml/m2 SI(MOD-sp2): 18.8 ml/m2 LA A4 area: 15.4 cm2 LA dimension(2D): 3.9 cm RA A4 area: 11.6 cm2 TAPSE: 2.2 cm Time Measurements MV dec time: 0.18 sec Doppler Measurements & Calculations MV E max manolo: 79.6 cm/sec Lat Peak E' Manolo: 11.9 cm/sec Med Peak E' Manolo: 8.5 cm/sec MV A max manolo: 96.5 cm/sec E/E' lat: 6.7 E/E' med: 9.4 MV E/A: 0.83 MV V2 max: 107.8 cm/sec MV P1/2t max manolo: 91.7 cm/sec Ao V2 max: 114.9 cm/sec MV max P.7 mmHg MV P1/2t: 43.2 msec Ao max P.3 mmHg MV V2 mean: 61.1 cm/sec MV dec slope: 621.2 cm/sec2 Ao V2 mean: 87.1 cm/sec MV mean P.7 mmHg MVA(P1/2t): 5.1 cm2 Ao mean P.2 mmHg MV V2 VTI: 22.7 cm Ao V2 VTI: 25.9 cm AV (velocity ratio): 0.86 LV V1 max: 99.0 cm/sec PA V2 max: 68.4 cm/sec LV V1 max P.9 mmHg PA V2 mean: 54.0 cm/sec LV V1 mean P.3 mmHg LV V1 mean: 74.3 cm/sec LV V1 VTI: 22.3 cm ECHO/Echo Complete W/ Contrast Interpretation Summary The estimated ejection fraction is 55-60 %. Overall normal LV systolic function Contrast echo used/Definity No previous echo to compare Ordering Physician: John Wilburn Referring Physician: Ananda Vergara Performed By: Jud Alvarez, TATE, RVT
--- NOTE | 2024-09-21 11:22 | RDU_ITS ---
Reason For Study Reason For Study: Hypertension Right Renal Artery Left Renal Artery Right renal artery ostium 108.7/27.8 Left renal artery ostium 113.2/18.9 RSV/EDV. PSV/EDV. Right renal artery proximal 128.6/27.7 Left renal artery proximal PSV/EDV PSV/EDV. 111/23.3 . Right renal artery mid 106.7/27.7 Left renal artery mid 135.2/29.8 PSV/EDV. PSV/EDV . Right renal artery distal 114.3/32.1 Left renal artery distal 149.3/37.2 PSV/EDV. PSV/EDV. Right Renal Parenchyma Left Renal Parenchyma Upper Pole Medula 29.2/5 PSV/EDV. Left upper pole medulla 22.2/5.6 Right upper pole medulla EDR 0.2 . PSV/EDV . Right upper pole medulla R.I. 0.83 . Left upper pole medulla EDR 0.3 . Upper Feroz Cortx 12.4/4.7 PSV/EDV. Left upper pole medulla R.I. 0.75 . Right upper pole cortex EDR 0.4 . UP Cortex 11.4/4.3 PSV/EDV. Right upper pole cortex R.I. 0.62 . Left upper pole cortex EDR 0.4 . Right lower Pole medulla 31.1/7.5 Left upper pole cortex R.I. 0.62 . PSV/EDV . Left lower Pole medulla 21.4/7.2 Right lower pole medulla EDR 0.2 . PSV/EDV . Right lower pole medulla R.I. 0.76 . Left lower pole medulla EDR 0.3 . Lower Pole Cortex 10.8/4.2 PSV/EDV. Left lower pole medulla R.I. 0.66 . Right lower pole cortex EDR 0.4 . Lower Pole Cortx 17.6/6.7 PSV/EDV. Right lower pole cortex R.I. 0.61 . Left lower pole cortex EDR 0.4 . Right Renal Hilar Left lower pole cortex R.I. 0.62 . Right Hilar avg 52.6/15.2 PSV/EDV. Left Renal Hilar Right hilar acceleration time 10 m/sec. LT Hilar avg 89.6/22.6 PSV/EDV . Right Renal Dimensions Left hilar acceleration time 40 m/sec. Right kidney size 10.40 cm . Left Renal Dimensions Right cortical dimension 1.47 cm . Left kidney size 10.78 cm . Left cortical dimension 1.45 cm . Aorta Proximal abdominal aorta 1.94 x 1.94 cm . Proximal abdominal aorta peak systolic velocity is 150.9 cm/sec . Distal abdominal aorta 1.59 x 1.59 cm . Distal abdominal aorta peak systolic velocity is 121.6 cm/sec . VL/Renal Artery Duplex Ultrasound Interpretation Summary Dimensions of the intra-abdominal aorta appear normal, without evidence of aneu rysmal dilatation. Renal artery velocities are bilaterally normal. Acceleration times are normal bilaterally. T here is no evidence of hemodynamically significant renal artery stenosis on either side. Renovascular resistance appea rs to be bilaterally normal . Cortical dimensions are bilaterally normal. Kidneys appear normal in size bilaterally. Ordering Physician: John Wilburn Referring Physician: MD Jai Ananda Performed By: Soledad Ortega RVT
[2024-09-21 11:45] LABS: Pro- Brain NATRIURETIC PEPTIDE 71 pg/mL (<=450)
[2024-09-21] MEDS: amLODIPine 10 MG Tablet PO (11:50)
[2024-09-21] MEDS: Pantoprazole Sodium 40 MG Tablet PO (11:50)
[2024-09-21] MEDS: Metoprolol Tartrate 50 MG Tablet PO ×2 (11:50→20:50)
[2024-09-21] MEDS: hydrALAZINE 50 MG Tablet PO ×2 (13:10→20:51)
[2024-09-21 13:47] LABS: International Normalized Ratio 1.2; Prothrombin Time (Protime)PT. 15.7 SECONDS (11.7-14.9)
[2024-09-21 13:57] LABS: Partial Thromboplast Time 99.3 Seconds (24.1-36.2)
[2024-09-21] MEDS: Fluticasone 0.05% 1 SPRAY NASAL.SRY NASAL (20:50)
[2024-09-21] MEDS: Heparin Injection (Vial) 5,000 UNIT/ML VIAL IV (22:24)
[2024-09-22] VITALS (7 sets, daily range): BP systolic 138–165; BP diastolic 75–93; PULSE 78–87; RESP 18; TEMP 36.2–37.1; O2SAT 95–97
[2024-09-22] MEDS: HEPARIN/D5w 25,000 UNITS 25,000 UNITS/250 ML IV.SOLN. 16 UNITS CONT INF (03:15)
[2024-09-22 04:36] LABS: Absolute Lymphocyte Count 2.86 X10^3/uL (0.83-4.51); Absolute Neutrophil Count 7.3 X10^3/uL (2.0-7.7); Basophil# 0.05 X10^3/uL; Basophil% 0.4 % (0-1); Eosinophil# 0.94 X10^3/uL; Hematocrit 34.3 % (37-47); Hemoglobin 10.2 g/dL (12.0-15.0); Lymphocyte # 2.86 X10^3/ul (0.83-4.51); Lymphocyte % 24.2 % (19-41); Mean Corp Hgb Conc 29.7 g/dL (32-36); Mean Corpuscular Hgb 24.5 pg (27.0-32.0); Mean Corpuscular Volume 82.3 fL (81-99); Monocyte# 0.66 X10^3/uL; Monocyte% 5.6 % (0-10); NRBC Flagged by Analyzer 0 % (0-5); Neutrophil # 7.26 X10^3/uL (2.7-7.7); Neutrophil % 61.5 % (47-70); Platelet Count 273 K/mm3 (150-450); RBC Distribution Width CV 15.9 % (11.6-14.6); Red Blood Count 4.17 M/mm3 (4.2-5.4); White Blood Count 11.8 K/mm3 (4.4-11.0)
[2024-09-22 05:00] LABS: Partial Thromboplast Time 55.8 Seconds (24.1-36.2)
[2024-09-22] MEDS: hydrALAZINE 50 MG Tablet PO ×2 (05:27→14:17)
[2024-09-22 05:49] LABS: Anion Gap 13 (5-15); BUN 16 mg/dL (4-19); BUN/Creat Ratio 20.4 RATIO (10-20); Calcium,Total 9.3 mg/dL (7.6-11.0); Chloride 101 mmol/L (98-108); Creatinine, Serum 0.79 mg/dL (0.70-1.20); EST Glomerular Filtration Rate 94 (>60); Estimated Creatinine Clearance 117.12 ml/min (50-250); Glucose 113 mg/dL (70-99); Magnesium 2.1 mg/dL (1.5-2.2); Phosphorus 3.4 mg/dL (2.7-4.5); Potassium 3.7 mmol/L (3.3-5.1); Sodium Level 134 mmol/L (133-145)
--- NOTE | 2024-09-22 09:43 | PCM.PN.HOSP ---
Reason for Visit Reason for Visit: Diagnoses Hypertensive urgency (09/21/24) Other pulmonary embolism without acute cor pulmonale (09/21/24) Subjective Subjective Patient seen denies any chest pain no shortness of breath no nausea no vomiting. Echo obtained demonstrated EF of 55 to 60% with overall normal LV systolic dysfunction no mention of cardiac strain. Patient will be assessed for discharge after she has been switched to apixaban Objective Data Objective Data Vital Signs: Vital Signs Temp Pulse Resp BP Pulse Ox O2 Del Method 97.2 F L 78 18 138/75 H 97 Room Air 09/22/24 05:26 09/22/24 05:27 09/22/24 05:26 09/22/24 05:27 09/22/24 05:26 09/22/24 05:26 Oxygen Delivery Method Room Air Weight: 124.2 kg Body Mass Index (BMI) 47.0 Intake & Output: Intake and Output for Last 24 Hours 09/20/24 09/21/24 09/22/24 23:59 23:59 23:59 Intake Total 647.4 / 1007.4 438.13 / 438.13 Balance 647.4 / 1007.4 438.13 / 438.13 Lab / Micro Data 09/22/24 04:20 09/22/24 04:20 Labs: Laboratory Results - last 24 hr 09/21/24 07:30: PT 13.5, INR 1.0, APTT 23.5 L 09/21/24 11:20: PT 15.7 H, INR 1.2, APTT 99.3 H*, NT pro BNP II 71 09/21/24 21:30: APTT 40.0 H 09/22/24 04:20: WBC 11.8 H, RBC 4.17 L, Hgb 10.2 L, Hct 34.3 L, MCV 82.3, MCH 24.5 L, MCHC 29.7 L, RDW Std Deviation 48.0 H, RDW Coeff of Carlitos 15.9 H, Plt Count 273, MPV 9.0, Immature Gran % (Auto) 0.300, Neut % (Auto) 61.5, Lymph % (Auto) 24.2, Dane % (Auto) 5.6, Eos % (Auto) 8.0 H, Baso % (Auto) 0.4, Absolute Neuts (auto) 7.3, Absolute Lymphs (auto) 2.86, Nucleated RBC % 0, APTT 55.8 H, Sodium 134, Potassium 3.7, Chloride 101, Carbon Dioxide 19.0 L, Anion Gap 13, BUN 16, Creatinine 0.79, Estim Creat Clear Calc 117.12, Est GFR (MDRD) Non-Af 94, BUN/Creatinine Ratio 20.4 H, Glucose 113 H, Calcium 9.3, Phosphorus 3.4, Magnesium 2.1, TSH 4.220 H Micro: Microbiology 09/21/24 10:15 Mucosa - Nose SARS-CoV-2, Influenza & RSV (PCR) - Final Radiography Diagnostic Testing: Radiology Impression Echocardiogram 09/21/24 11:22 Interpretation Summary The estimated ejection fraction is 55-60 %. Overall normal LV systolic function Contrast echo used/Definity No previous echo to compare Ordering Physician: John Wilburn Referring Physician: Ananad Vergara Performed By: Jud Alvarez, TATE, RVT Physical Exam Narrative GENERAL: cooperative HEENT: Atraumatic; normocephalic EYES; Anicteric, Normal Conjunctiva NECK; supple, normal thyroid, RESPIRATORY: Diminished to auscultation CARDIOVASCULAR: Regular S1 S2, GI: soft, normoactive bowel sounds, : No Renal angle tenderness; EXTREMITIES: No edema, no clubbing, MUSCULOSKELETAL: no muscle wasting NEURO: Awake; no lateralizing signs. SKIN: No Rash PSYCH; Flat affect Assessment & Plan Assessment/Plan (1) Pulmonary emboli: (2) Hypertensive urgency: PLAN: Plan Patient is a 43-year-old lady who was admitted with markedly elevated blood pressure found incidentally to have multiple small nonocclusive pulmonary emboli. Admitted to monitored bed for further management 1. Accelerated hypertension ? Patient blood pressure on admission was 228/121. Patient did receive labetalol in the ED. Subsequently ordered amlodipine and metoprolol as well as hydralazine. Further evaluation ordered 2D echo 2. Acute pulmonary embolism ? Found incidentally while the patient was being evaluated for tachycardia. CTA did show several nonocclusive intraluminal filling defects in branches of the right and left upper and lower pulmonary arteries suggestive of pulmonary emboli.. Hypercoagulable studies initiated prior to initiation of heparin. 2D echo ?Patient seen denies any chest pain no shortness of breath no nausea no vomiting. Echo obtained demonstrated EF of 55 to 60% with overall normal LV systolic dysfunction no mention of cardiac strain. Patient will be assessed for discharge after she has been switched to apixaban 3. Recent admission in June for GI bleed ? Patient was found to have a Dula for lesion per EGD. Patient was discharged on Protonix did explain to patient this may complicate her treatment regarding the pulmonary embolism. She understands the risk and is willing to proceed with systemic anticoagulation. As stated above ordered renal ultrasound of both lower extremities and if patient has recurrence of her bleed she may need to undergo IVC filter placement 4. Class III obesity with BMI of 47.8 ? Complicating care weight loss advised 5. Depression with anxiety ? Patient's of requested 6. Allergic rhinitis ? Fluticasone as needed Time spent in the patient's overall evaluation,decision-making process, review of diagnostic data, adjustment of management, discussion with other providers, nursing nursing and ancillary staff involved in patient's care documentation, 38 Minutes
--- NOTE | 2024-09-22 10:10 | CASEMGMT ---
RN CM Face to Face with patient for initial transition planning/care coordination assessment. RN CM introduced self and role at [facility]. Patient lying in bed, alert and oriented. Patient willing to participate in assessment and is able to answer all questions appropriately. Care providers, pharmacy, and demographics verified. Strata: 1 PCP: Jai Specialists: none Preferred Pharmacy: [facility] Insurance: [place] Prescription Benefit: yes, Eliquis savings card provided to patient Living Will/HPOA: none LNOK: friend Living Arrangements: Patient lives alone in a 2nd floor apartment. Patient is independent and able to ambulate stairs. Transportation: self, friends DME/HHC: Patient states she ordered BP cuff for at home. No previous HHC or SNF. Patient wishes to discharge home, denies need for home health at this time. Patient states she has no further needs or concerns at this time. CM to follow for discharge planning needs that may arise. Disposition Plan: Patient to discharge home with family support and follow-up plans in place. Soledad CUENCA, RN, CM
[2024-09-22] MEDS: APIXABAN 5 MG TABLET 10 MG PO (10:49)
[2024-09-22] MEDS: Metoprolol Tartrate 50 MG Tablet PO (10:49)
[2024-09-22] MEDS: amLODIPine 10 MG Tablet PO (10:49)
[2024-09-22] MEDS: FLUoxetine 20 MG Capsule PO (10:49)
[2024-09-22] MEDS: Pantoprazole Sodium 40 MG Tablet PO (10:49)
[2024-09-22] MEDS: Fluticasone 0.05% 1 SPRAY NASAL.SRY NASAL (10:50)
[2024-09-22 11:46] LABS: Partial Thromboplast Time 38.5 Seconds (24.1-36.2)
--- NOTE | 2024-09-22 13:19 | DS.PCM_ITS ---
Providers Date of Admission: 09/21/24 Date of Discharge: 09/22/24 Primary Care Physician: Dr. Ananda Vergara MD Consultations 09/21/24 16:15 Consult: Onc/Wound/application design engineer Routine Comment: Reason for Consult:: LLE wound Reason For Visit: MYNOR PE Diagnosis Discharge Diagnosis (1) Pulmonary emboli: Status: Acute Code(s): I26.99 - Other pulmonary embolism without acute cor pulmonale (2) Hypertensive urgency: Status: Acute Code(s): I16.0 - Hypertensive urgency Plan Patient is a 43-year-old lady who was admitted with markedly elevated blood pressure found incidentally to have multiple small nonocclusive pulmonary emboli. Admitted to monitored bed for further management 1. Accelerated hypertension ? Patient blood pressure on admission was 228/121. Patient did receive labetalol in the ED. Subsequently ordered amlodipine and metoprolol as well as hydralazine. Further evaluation ordered 2D echo 2. Acute pulmonary embolism ? Found incidentally while the patient was being evaluated for tachycardia. CTA did show several nonocclusive intraluminal filling defects in branches of the right and left upper and lower pulmonary arteries suggestive of pulmonary emboli.. Hypercoagulable studies initiated prior to initiation of heparin. 2D echo ?Patient seen denies any chest pain no shortness of breath no nausea no vomiting. Echo obtained demonstrated EF of 55 to 60% with overall normal LV systolic dysfunction no mention of cardiac strain. Patient will be assessed for discharge after she has been switched to apixaban 09/22/2024; patient was given a prescription for 1 month and instructed to follow-up with primary care physician for refills and ongoing care. She was also informed to check with primary care physician regarding results of her hypercoagulable panel results. 3. Recent admission in June for GI bleed ? Patient was found to have a Dula for lesion per EGD. Patient was discharged on Protonix did explain to patient this may complicate her treatment regarding the pulmonary embolism. She understands the risk and is willing to proceed with systemic anticoagulation. As stated above ordered renal ultrasound of both lower extremities and if patient has recurrence of her bleed she may need to undergo IVC filter placement 4. Class III obesity with BMI of 47.8 ? Complicating care weight loss advised 5. Depression with anxiety ? Patient's of requested 6. Allergic rhinitis ? Fluticasone as needed Time spent in the patient's overall evaluation,decision-making process, review of diagnostic data, adjustment of management, discussion with other providers, nursing nursing and ancillary staff involved in patient's care documentation, 38 Minutes Medications at Discharge Home Medications albuterol sulfate 90 mcg/actuation aerosol inhaler 2 puff inhalation Q4H PRN PRN wheezing 07/17/24 cephalexin 500 mg capsule 500 mg PO 4X/DAY 07/17/24 fluoxetine 20 mg capsule 20 mg PO DAILY depression 07/17/24 fluticasone propionate 50 mcg/actuation nasal spray,suspension 1 spray intranasal Q12H allergies 07/17/24 doxycycline monohydrate 100 mg capsule 100 mg PO BID 5 days #10 caps 07/19/24 cyclobenzaprine 10 mg tablet 10 mg PO TID pulled muscle 09/21/24 amlodipine 10 mg tablet 10 mg PO DAILY #90 tabs 09/22/24 apixaban 5 mg (74 tabs) tablets in a dose pack ([employer] DVT-PE Treat 30D Start) 5 mg PO BID #74 tabs 09/22/24 metoprolol tartrate 50 mg tablet 50 mg PO BID 90 days #180 tabs 09/22/24 Physical Exam Narrative GENERAL: cooperative HEENT: Atraumatic; normocephalic EYES; Anicteric, Normal Conjunctiva NECK; supple, normal thyroid, RESPIRATORY: Diminished to auscultation CARDIOVASCULAR: Regular S1 S2, GI: soft, normoactive bowel sounds, : No Renal angle tenderness; EXTREMITIES: No edema, no clubbing, MUSCULOSKELETAL: no muscle wasting NEURO: Awake; no lateralizing signs. SKIN: No Rash PSYCH; Flat affect Weight / BMI Weight Weight: 124.2 kg Body Mass Index (BMI) 47.0 ABG / Lab / Microbiology Data 09/22/24 04:20 09/22/24 04:20 Laboratory: Laboratory Results - last 24 hr 09/21/24 11:20: PT 15.7 H, INR 1.2, APTT 99.3 H* 09/21/24 21:30: APTT 40.0 H 09/22/24 04:20: WBC 11.8 H, RBC 4.17 L, Hgb 10.2 L, Hct 34.3 L, MCV 82.3, MCH 24.5 L, MCHC 29.7 L, RDW Std Deviation 48.0 H, RDW Coeff of Carlitos 15.9 H, Plt Count 273, MPV 9.0, Immature Gran % (Auto) 0.300, Neut % (Auto) 61.5, Lymph % (Auto) 24.2, Ware % (Auto) 5.6, Eos % (Auto) 8.0 H, Baso % (Auto) 0.4, Absolute Neuts (auto) 7.3, Absolute Lymphs (auto) 2.86, Nucleated RBC % 0, APTT 55.8 H, Sodium 134, Potassium 3.7, Chloride 101, Carbon Dioxide 19.0 L, Anion Gap 13, BUN 16, Creatinine 0.79, Estim Creat Clear Calc 117.12, Est GFR (MDRD) Non-Af 94, BUN/Creatinine Ratio 20.4 H, Glucose 113 H, Calcium 9.3, Phosphorus 3.4, Magnesium 2.1, TSH 4.220 H 09/22/24 11:27: APTT 38.5 H Microbiology: Microbiology 09/21/24 10:15 Mucosa - Nose SARS-CoV-2, Influenza & RSV (PCR) - Final Radiography Diagnostic Testing: Radiology Impression Echocardiogram 09/21/24 11:22 Interpretation Summary The estimated ejection fraction is 55-60 %. Overall normal LV systolic function Contrast echo used/Definity No previous echo to compare Ordering Physician: John Wilburn Referring Physician: Ananda Vergara Performed By: Jud Alvarez, TATE, RVT D/C Instructions Discharge Diet: No restrictions Discharge Activity: Return to Normal Activity Call your doctor if you observe: Fever of 101 or Higher, Shortness of breath, Fainting spells and Chest pain DC O2, CPAP, BIPAP Needs Home O2 Discharge instructions: No Meaningful Use Info Meaningful Use Meaningful Use Diagnoses (Choose all that apply): VTE Ischemic Stroke Statin Dosing Therapy Reference: STATIN DOSE THERAPY REFERENCE: * Patients > 75 years receive moderate or high dose statin therapy. * Patients 75 years or YOUNGER should receive HIGH intensity statin dose unless contraindicated. You will be required to document reason for non-treatment if statin daily dose does not meet guidelines. HIGH DOSE STATIN THERAPY DAILY Atorvastatin > than or = to 40 mg Rosuvastatin > than or = to 20 mg Amlodipine + Atorvastatin > than or = to 2.5/40 mg Ezetimibe + Simvastatin 10/80 mg Simvastatin 80mg VTE Anticoag overlap given w/in hospital stay or rx'd at mt?: No Pt receive overlap for 5 days?: No Reason overlap not ordered, prescribed, or given for 5 days: Treatment Not Indicated Discharge Plan Admission Admit Date/Time: 09/21/24 09:13 Attending Provider: John Wilburn Primary Care Provider: Ananda Vergara Discharge Orders/Prescriptions Prescriptions: New amlodipine 10 mg Tablet 10 mg PO DAILY Qty: 90 0RF metoprolol tartrate 50 mg Tablet 50 mg PO BID 90 Days Qty: 180 0RF Eliquis DVT-PE Treat 30D Start 5 mg (74 tabs) tablets,dose pack 5 mg PO BID Qty: 74 0RF Rx Instructions: 10 mg p.o. twice daily for 7 days and subsequently 5 mg twice daily No Action cephalexin 500 mg capsule 500 mg PO 4X/DAY albuterol sulfate 90 mcg/actuation HFA aerosol inhaler 2 puff inhalation Q4H PRN PRN (Reason: wheezing) fluoxetine 20 mg capsule 20 mg PO DAILY fluticasone propionate 50 mcg/actuation spray,suspension 1 spray INTRANASAL Q12H doxycycline monohydrate 100 mg capsule 100 mg PO BID 5 Days Qty: 10 0RF cyclobenzaprine 10 mg tablet 10 mg PO TID Referrals / Follow Up: Ananad Vergara MD [Primary Care Provider] - Within 1 Week Disposition Disposition (needs filled in before D/C Order can be placed): Home, Self Care Charges/Coding Visit Charges Inpatient E&M: 67907 Disch Hosp >30min
--- NOTE | 2024-09-22 13:38 | WOUNDNOTE ---
wound photo: left medial lower leg
--- NOTE | 2024-09-22 13:56 | CASEMGMT ---
Addendum entered by Niecy Merida 09/22/24 14:28: [facility] returns call and states that all of the pt's prescriptions (including the Eliquis) come to a 0$ co-pay. This was without any savings cards or coupons. Pt updated and prefers her meds to be delivered to bedside. [facility] notified and to deliver the medications. Pt RN aware. Pt denies further needs. Addendum entered by Niecy Merida 09/22/24 14:17: [facility] states that [facility] needs to cancel the rxs. TC to [facility]. Pharmacist at [facility] states that he canceled the order already. TC back to [facility] who states that the order still has not been canceled. This RN MAXIM inquired if [facility] can call [facility] to get this resolved. [facility] calling [facility] now and will call this RN MAXIM back. Original Note: Pt has an order for DC. Pt has a new rx for Eliquis. TC to the pt's preferred pharmacy, [facility]. [facility] states that they do not have the medication available until Wednesday and that the pt's co-pay is over 700$. LILIANA PAN to the pt room at this time. Pt states that she is OK with her new meds being sent to [facility]. Dr. Wilburn notified. CM to follow.
[2024-09-25 18:08] LABS: Anti-Cardiolipin Ab, IgG, Qn < 9 GPL U/mL (0-14); Anti-Cardiolipin Ab, IgM, Qn < 9 MPL U/mL (0-12); Beta-2-Glycoprotein I IgA <9 (0-25); Beta-2-Glycoprotein I IgG <9 (0-20); Beta-2-Glycoprotein I IgM <9 (0-32)
[2024-09-28 14:09] LABS: Anti-Thrombin 3 AG, Immunol 75 % (72-124); Antithrombin 3 Function 105 % (75-135); Protein C Antigen 149 % (60-150); Protein C, Functional 154 % (73-180)
== END 2024-09-22 15:15 | disposition home or self-care (01) ==
LOC: ED 09:16 → PCU 09-22 09:18
PROVIDERS: Admitting Provider Internal Medicine; Emergency Provider Emergency Medicine; PCP Family Medicine; Visit Provider Internal Medicine
DX: I16.0 Hypertensive urgency (principal); I26.99 Other pulmonary embolism without acute cor pulmonale; Z68.42 Body mass index [BMI] 45.0-49.9, adult; E66.813 Obesity, class 3; F41.8 Other specified anxiety disorders; Z56.6 Other physical and mental strain related to work; Z79.899 Other long term (current) drug therapy; I10 Essential (primary) hypertension; R00.0 Tachycardia, unspecified
CPT/HCPCS: 36415; 71275; 80048; 81001; 81240; 81241; 83735; 83880; 84100; 84443; 84484; 84703; 85025; 85300; 85301; 85302; 85303; 85379; 85610; 85730; 86146; 86147; 87631; 93005; 93306; 93975; 96365; 96366; 96375; 96376; 97802; 99221; 99285; Q9957; Q9967; A4216; C8929; G0378